=== PATIENT | male | born 1945 | race Caucasian/White ===

== ENCOUNTER → 2018-07-20 | Outpatient (CLI) | payer MEDICARE, MEDICAID ==
--- NOTE | 2018-07-20 16:09 | RADIOLOGY REPORT (SQ) ---
EXAM DESCRIPTION: CHEST PA/LATERAL COMPLETED DATE/TIME: 07/20/2018 3:54 pm REASON FOR STUDY: COPD EXACERBATION COMPARISON: None. EXAM PARAMETERS: NUMBER OF VIEWS: two views TECHNIQUE: Digital Frontal and Lateral radiographic views of the chest acquired. RADIATION DOSE: NA LIMITATIONS: none FINDINGS: LUNGS AND PLEURA: No opacities, masses or pneumothorax. No pleural effusion. MEDIASTINUM AND HILAR STRUCTURES: No masses or contour abnormalities. HEART AND VASCULAR STRUCTURES: Heart normal size. No evidence for failure. BONES: No acute findings. HARDWARE: None in the chest. OTHER: No other significant finding. IMPRESSION: NO SIGNIFICANT RADIOGRAPHIC FINDING IN THE CHEST. TECHNICAL DOCUMENTATION: JOB ID: [id number] [email or web address]- All Rights Reserved Reading location - IP/workstation name: [email or web address]
== END ==
LOC: OD 15:37
PROVIDERS: ATTEND Family Medicine
DX: J44.1 Chronic obstructive pulmonary disease with (acute) exacerbation (principal)
CPT/HCPCS: 71046

== ENCOUNTER 2019-11-13 10:00 | Inpatient (IN) | payer MEDICARE, MEDICAID ==
[2019-11-13] MEDS ORDERED: IPRATROPIUM/ALBUTEROL 0.5-2.5 MG/3 ML AMPUL NEB ONE (10:23)
[2019-11-13] MEDS ORDERED: ALBUTEROL SULFATE 0.083% NEB 2.5 MG/3 ML AMPUL NEB ONE (10:23)
[2019-11-13] MEDS ORDERED: PREDNISONE 20 MG TABLET PO ONE (10:24)
--- NOTE | 2019-11-13 10:25 | ER Document Report ---
ED Medical Screen (RME) - General Chief Complaint: Shortness Of Breath Stated Complaint: TROUBLE BREATHING Time Seen by Provider: 11/13/19 10:17 Primary Care Provider: KAMALA CORRAL DO [Primary Care Provider] - Follow up as needed TRAVEL OUTSIDE OF THE [place] IN LAST 30 DAYS: No - HPI Notes: 11/13/19 10:24 74-year-old male with history of COPD to the emergency department with c omplaints of progressively worsening shortness of breath for the past 2 weeks. He states he has been trying to use his albuterol inhaler but it really has not been controlling him. He states he gets a little bit worse at night. He states that he has a nebulizer machine but he cannot find it. He states that he stopped smoking in 2004. Denies fevers or chills. Denies chest pain. States that he will wake up in the middle the night and feel like he cannot breathe. I performed a brief medical screening exam on the patient and determined that he will need further evaluation and management by me inside provider. I placed initial orders to help expedite his care. - Related Data Allergies/Adverse Reactions: Penicillins Allergy (Verified 11/13/19 10:13) Home Medications: PAtient does not have list with him at this time. Past Medical History - Social History Chew tobacco use (# tins/day): No Frequency of alcohol use: None Drug Abuse: None Pulmonary Medical History: Reports: Hx COPD Past Surgical History: Reports: Hx Abdominal Surgery - inguinal hernia Physical Exam - Vital signs Vitals: Temp Pulse Resp BP Pulse Ox 97.9 F 95 20 129/72 H 94 11/13/19 10:11/13/19 10:11/13/19 10:11/13/19 10:11/13/19 10:05 Course - Vital Signs Vital signs: Temp Pulse Resp BP Pulse Ox 97.9 F 95 20 129/72 H 94 11/13/19 10:11/13/19 10:11/13/19 10:11/13/19 10:05 11/13/19 10:05 Doctor's Discharge - Discharge Referrals: KAMALA CORRAL DO [Primary Care Provider] - Follow up as needed
[2019-11-13 11:11] LABS: ABSOLUTE BASOPHILS # (AUTO) 0.1 10^3/uL (0.0-0.2); ABSOLUTE EOSINOPHILS # (AUTO) 0.7 10^3/uL (0.0-0.6); ABSOLUTE LYMPHOCYTES (AUTO) 1.3 10^3/uL (0.5-4.7); ABSOLUTE MONOCYTES (AUTO) 0.7 10^3/uL (0.1-1.4); ABSOLUTE NEUT (AUTO) 3.5 10^3/uL (1.7-8.2); BASOPHILS % (AUTO) 0.8 % (0-2); EOSINOPHILS % (AUTO) 11.7 % (0-6); HEMATOCRIT 45.8 % (37.9-51.0); HEMOGLOBIN 15.3 g/dL (13.5-17.0); MEAN CORPUSCULAR HEMOGLOBIN 29.7 pg (27.0-33.4); MEAN CORPUSCULAR HGB CONC 33.3 g/dL (32.0-36.0); MEAN CORPUSCULAR VOLUME 89 fl (80-97); MONOCYTES % (AUTO) 11.2 % (3-13); PLATELET COUNT 273 10^3/uL (150-450); RED BLOOD COUNT 5.14 10^6/uL (4.35-5.55); RED CELL DISTRIBUTION WIDTH 14.4 % (11.5-14.0); SEGMENTED NEUTROPHILS % (AUTO) 56.3 % (42-78); TOTAL CELLS COUNTED % (AUTO) 100 %; WHITE BLOOD COUNT 6.3 10^3/uL (4.0-10.5)
--- NOTE | 2019-11-13 11:21 | RADIOLOGY REPORT (SQ) ---
EXAM DESCRIPTION: CHEST 2 VIEWS COMPLETED DATE/TIME: 11/13/2019 11:08 am REASON FOR STUDY: SOB COMPARISON: 07/20/2018 EXAM PARAMETERS: NUMBER OF VIEWS: two views TECHNIQUE: Digital Frontal and Lateral radiographic views of the chest acquired. RADIATION DOSE: NA LIMITATIONS: none FINDINGS: LUNGS AND PLEURA: Minimal opacity at the left base. Right lung is clear. Hyperinflation. MEDIASTINUM AND HILAR STRUCTURES: No masses or contour abnormalities. HEART AND VASCULAR STRUCTURES: Heart normal size. No evidence for failure. BONES: No acute findings. HARDWARE: None in the chest. OTHER: No other significant finding. IMPRESSION: Left basilar pneumonitis. TECHNICAL DOCUMENTATION: JOB ID: [id number] [employer]- All Rights Reserved Reading location - IP/workstation name: [email or web address]
[2019-11-13 11:28] LABS: ALBUMIN 4.2 g/dL (3.5-5.0); ALKALINE PHOSPHATASE 61 U/L (38-126); ANION GAP 9 (5-19); ASPARTATE AMINO TRANSFERASE 27 U/L (17-59); BILIRUBIN,TOTAL 0.5 mg/dL (0.2-1.3); BLOOD UREA NITROGEN 10 mg/dL (7-20); CALCIUM 9.1 mg/dL (8.4-10.2); CARBON DIOXIDE 28 mmol/L (22-30); CHLORIDE 102 mmol/L (98-107); GLUCOSE 91 mg/dL (75-110); POTASSIUM 4.4 mmol/L (3.6-5.0); TOTAL PROTEIN 7.2 g/dL (6.3-8.2)
[2019-11-13] MEDS ORDERED: DEXAMETHASONE SOD PHOS INJ 10 MG/1 ML VIAL IV ONE (13:32)
[2019-11-13] MEDS ORDERED: LEVOFLOXACIN 750 MG/D5W RTU 750 MG/150 ML RTUPB IV ONE (13:33)
[2019-11-13] MEDS ORDERED: HYDROCODONE BIT/HOMATROPINE SYRUP 5 ML UDCUP PO ONE (13:34)
[2019-11-13] MEDS ORDERED: HYDROCODONE BIT/HOMATROPINE 5-1.5 MG TABLET PO ONE (13:51)
--- NOTE | 2019-11-13 13:57 | ER Document Report ---
ED General - General Chief Complaint: Shortness Of Breath Stated Complaint: TROUBLE BREATHING Time Seen by Provider: 11/13/19 10:17 Primary Care Provider: KAMALA CORRAL DO [Primary Care Provider] - Follow up as needed Information source: Patient Notes: 74-year-old male who reports he used to be a smoker but stopped in 2004 because of 3 pack-a-day smoking for more than 40 years. Patient arrives with 2-week history of increased shortness of breath nightly congestion and nightly awakening him with cough and has a history of COPD. Patient arrives with history of also green productive phlegm. He reports he has a rattle in his chest as well. He denies any fever chills skin rash sore throat nasal congestion nuchal rigidity cephalgia exposure to sick people or to foreign willa viduals and has not been exposed to anyone from [place] and no one with SARS MRS coronavirus. Reports he had rheumatic fever as a child and got many shots of penicillin and therefore he does not like needles. TRAVEL OUTSIDE OF THE [place] IN LAST 30 DAYS: No - HPI Onset: This morning - Related Data Allergies/Adverse Reactions: Penicillins Allergy (Verified 11/13/19 10:13) Home Medications: PAtient does not have list with him at this time. Past Medical History - General Information source: Patient - Social History Smoking Status: Former Smoker Cigarette use (# per day): No Chew tobacco use (# tins/day): No Smoking Education Provided: No Frequency of alcohol use: None Drug Abuse: None Lives with: Family Family History: Reviewed & Not Pertinent Patient has suicidal ideation: No Patient has homicidal ideation: No - Past Medical History Cardiac Medical History: Reports: None Pulmonary Medical History: Reports: Hx COPD EENT Medical History: Reports: None Neurological Medical History: Reports: None Renal/ Medical History: Reports: None Malignancy Medical History: Reports None GI Medical History: Reports: None Musculoskeletal Medical History: Reports None Skin Medical History: Reports None Psychiatric Medical History: Reports: None Traumatic Medical History: Reports: None Infectious Medical History: Reports: None Past Surgical History: Reports: Hx Abdominal Surgery - inguinal hernia - Immunizations Immunizations up to date: No Review of Systems - Review of Systems Constitutional: See HPI, Malaise, Weakness EENT: Nose congestion Cardiovascular: No symptoms reported Respiratory: Cough, Hurts to breathe, Short of breath, Sputum, Wheezing Gastrointestinal: No symptoms reported Genitourinary: No symptoms reported Male Genitourinary: No symptoms reported Musculoskeletal: No symptoms reported Skin: No symptoms reported Hematologic/Lymphatic: No symptoms reported Neurological/Psychological: No symptoms reported Physical Exam - Vital signs Vitals: Temp Pulse Resp BP Pulse Ox 97.9 F 95 20 129/72 H 94 11/13/19 10:05 11/13/19 10:05 11/13/19 10:05 11/13/19 10:05 11/13/19 10:05 Interpretation: Hypoxic, Tachypneic - General General appearance: Alert In distress: Mild - HEENT Head: Normocephalic Eyes: Normal Conjunctiva: Normal Cornea: Normal Extraocular movements intact: Yes Eyelashes: Normal Pupils: PERRL Nasal: Normal Mouth/Lips: Normal Pharynx: Normal Neck: Normal - Respiratory Respiratory status: Respiratory distress, Tachypnea Chest status: Nontender Breath sounds: Productive cough, Wheezing Chest palpation: Normal Course - Vital Signs Vital signs: Temp Pulse Resp BP Pulse Ox 97.9 F 95 20 104/65 95 11/13/19 10:05 11/13/19 10:05 11/13/19 13:01 11/13/19 13:01 11/13/19 13:01 - Laboratory Result Diagrams: 11/13/19 10:40 11/13/19 10:40 Laboratory results interpreted by me: 11/13/19 10:40 RDW 14.4 H Eos % (Auto) 11.7 H Absolute Eos (auto) 0.7 H Critical Care Note - Critical Care Note Total time excluding time spent on procedures (mins): 90 Comments: Discussed this case with ; advised speaking with Dr. Pinedo who advised he will admit patient Discharge - Discharge Clinical Impression: COPD (chronic obstructive pulmonary disease) with acute bronchitis, Hypoxia Pneumonia Qualifiers: Pneumonia type: due to unspecified organism Laterality: left Lung location: lower lobe of lung Qualified Code(s): J18.9 - Pneumonia, unspecified organism Condition: Good Disposition: ADMITTED INPATIENT Admitting Provider: Shahida (Hospitalist) Unit Admitted: Telemetry Referrals: KAMALA CORRAL DO [Primary Care Provider] - Follow up as needed
[2019-11-13] MEDS ORDERED: PROMETHAZINE HCL INJ 25 MG/1 ML VIAL IV PRN (15:19)
[2019-11-13] MEDS ORDERED: TEMAZEPAM 7.5 MG CAPSULE PO PRN (15:19)
[2019-11-13] MEDS ORDERED: OXYCODONE-ACETAMINOPHEN 5-325 MG TABLET PO PRN (15:19)
[2019-11-13] MEDS ORDERED: ALBUTEROL SULFATE 0.083% NEB 2.5 MG/3 ML AMPUL NEB PRN (15:19)
[2019-11-13] MEDS ORDERED: ONDANSETRON HCL INJ/PF 4 MG/2 ML SDV IV PRN (15:19)
[2019-11-13 16:00] LABS: ARTERIAL BLOOD BASE EXCESS -0.5 mmol/L; ARTERIAL BLOOD H2CO3 1.17 mmol/L (1.05-1.35); ARTERIAL BLOOD HCO3 23.9 mmol/L (20-24); ARTERIAL BLOOD O2 SATURATION 95.7 % (94-98); ARTERIAL BLOOD PH 7.41 (7.35-7.45); ARTERIAL BLOOD PO2 78.1 mmHg (80-100); ARTERIAL BLOOD TOTAL CO2 25.1 mmol/L (23-27)
[2019-11-13 16:01] LABS: ARTERIAL BLOOD FIO2 2L
[2019-11-13] MEDS: IPRATROPIUM/ALBUTEROL 0.5-2.5 MG/3 ML AMPUL NEB SCH ×2 (16:31→20:25)
[2019-11-13] MEDS: PANTOPRAZOLE SODIUM 40 MG TABLET.DR PO SCH (16:31)
[2019-11-13] MEDS: ENOXAPARIN SODIUM INJ 40 MG/0.4 ML DISP.SYRIN SUBCUT SCH (16:31)
--- NOTE | 2019-11-13 16:53 | PDOC H&P ---
History of Present Illness Admission Date/PCP: 11/13/19 14:28 KAAMLA CORRAL DO History of Present Illness: RICCI QUINTANILLA is a 74 year old male with past medical history of COPD, hypertension, history of rheumatic heart disease as a child, former heavy smoker, history of EtOH who was at rehab for 2 months in [place], came back in August was currently living at [facility] were several of his co-residents have been having upper respiratory symptoms. Patient presenting to ED complaining of worsening shortness of breath accompanied with greenish productive cough and congestion. Denies any fever, chills, weight loss, night sweats, nausea, vomiting, abdominal pain, diarrhea, constipation or any urinary symptoms, recent travel, has been exposed to other people at the [facility] with similar symptoms. Past Medical History Cardiac Medical History: Reports: None Pulmonary Medical History: Reports: Chronic Obstructive Pulmonary Disease (COPD) EENT Medical History: Reports: None Neurological Medical History: Reports: None Renal/ Medical History: Reports: None Malignancy Medical History: Reports: None GI Medical History: Reports: None Musculoskeltal Medical History: Reports: None Skin Medical History: Reports: None Psychiatric Medical History: Reports: None Traumatic Medical History: Reports: None Infectious Medical History: Reports: None Social History Lives with: Family Smoking Status: Former Smoker Electronic Cigarette use?: No Family History Family History: Reviewed & Not Pertinent Parental Family History Reviewed: Yes Children Family History Reviewed: Yes Sibling(s) Family History Reviewed.: Yes Medication/Allergy Home Medications: Methocarbamol [Robaxin 750 mg Tablet] 750 mg PO ASDIR PRN #40 tablet 07/13/15 Allergies/Adverse Reactions: Penicillins Allergy (Verified 11/13/19 10:13) Review of Systems Review of Systems: as per hpi Physical Exam Vital Signs: Temp Pulse Resp BP Pulse Ox 97.9 F 95 16 104/65 94 11/13/19 10:05 11/13/19 10:05 11/13/19 16:39 11/13/19 13:01 11/13/19 16:39 Intake & Output 11/12/19 11/13/19 11/14/19 06:59 06:59 06:59 Weight 96.4 kg General appearance: PRESENT: no acute distress, well-developed, well-nourished Head exam: PRESENT: atraumatic, normocephalic Respiratory exam: PRESENT: clear to auscultation blu, tachypnea. ABSENT: rales, rhonchi, wheezes Cardiovascular exam: PRESENT: RRR. ABSENT: diastolic murmur, rubs, systolic murmur GI/Abdominal exam: PRESENT: normal bowel sounds, soft. ABSENT: distended, guarding, mass, organolmegaly, rebound, tenderness Neurological exam: PRESENT: alert, awake, oriented to person, oriented to place, oriented to time, oriented to situation, CN II-XII grossly intact. ABSENT: motor sensory deficit Skin exam: PRESENT: dry, intact, warm. ABSENT: cyanosis, rash Results Laboratory Results: 11/13/19 10:40 11/13/19 10:40 11/13/19 11/13/19 11/13/19 10:40 10:40 15:52 WBC 6.3 RBC 5.14 Hgb 15.3 Hct 45.8 MCV 89 MCH 29.7 MCHC 33.3 RDW 14.4 H Plt Count 273 Seg Neutrophils % 56.3 Carbonic Acid 1.17 HCO3/H2CO3 Ratio 20:1 ABG pH 7.41 ABG pCO2 39.0 ABG pO2 78.1 L ABG HCO3 23.9 ABG O2 Saturation 95.7 ABG Base Excess -0.5 FiO2 2L Sodium 139.3 Potassium 4.4 Chloride 102 Carbon Dioxide 28 Anion Gap 9 BUN 10 Creatinine 0.80 Est GFR ( Amer) > 60 Glucose 91 Calcium 9.1 Total Bilirubin 0.5 AST 27 Alkaline Phosphatase 61 Total Protein 7.2 Albumin 4.2 Impressions: Chest X-Ray 11/13/19 10:23 IMPRESSION: Left basilar pneumonitis. Assessment and Plan - Diagnosis (1) Acute respiratory failure with hypoxia Is this a current diagnosis for this admission?: Yes Plan: Due to acute upper respiratory infection complicated by acute COPD exacerbation. Admit to medical floor, IV steroids, empiric IV antibiotics, duo nebs, PRN BiPAP, LABA, LABA, ICS, flutter valve, pulmonary toileting, incentive spirometer. (2) Acute exacerbation of chronic obstructive pulmonary disease (COPD) Is this a current diagnosis for this admission?: Yes Plan: History of non-oxygen dependent COPD. Uses rescue inhaler at home. Plan as per #1. Will evaluate for home O2 (3) Acute bronchitis Qualifiers: Bronchitis organism: unspecified organism Qualified Code(s): J20.9 - Acute bronchitis, unspecified Is this a current diagnosis for this admission?: Yes Plan: Complaining of productive cough with greenish sputum. Afebrile, no leukocytosis not sure if viral or bacterial but given underlying comorbidities will treat with empiric IV antibiotics with a sputum and blood culture. (4) Former smoker Is this a current diagnosis for this admission?: Yes Plan: History of heavy alcohol abuse. Quit in 2004. Encouraged abstinence. (5) History of alcohol abuse Is this a current diagnosis for this admission?: Yes Plan: Former EtOH abuser. As per patient he was in rehab in [place] for 2 months from June to August 2019. Encouraged abstinence.
[2019-11-13] MEDS: DOCUSATE SODIUM 100 MG CAPSULE PO SCH (18:57)
[2019-11-13] MEDS: METHYLPREDNISOLONE INJ 40 MG/1 ML SDV IV SCH (22:26)
[2019-11-13] MEDS: FAMOTIDINE 20 MG TABLET PO SCH (22:27)
--- NOTE | 2019-11-13 23:37 | EKG REPORT ---
SEVERITY:- ABNORMAL ECG - SINUS RHYTHM NONSPECIFIC INTRAVENTRICULAR CONDUCTION DELAY : Confirmed by: Samaria Holbrook 13-Nov-2019 23:36:47
[2019-11-14] MEDS: PANTOPRAZOLE SODIUM 40 MG TABLET.DR PO SCH ×2 (05:42→17:19)
[2019-11-14] MEDS: METHYLPREDNISOLONE INJ 40 MG/1 ML SDV IV SCH ×3 (05:42→21:30)
[2019-11-14 06:15] LABS: ABSOLUTE LYMPHOCYTES (AUTO) 0.6 10^3/uL (0.5-4.7); ABSOLUTE MONOCYTES (AUTO) 0.1 10^3/uL (0.1-1.4); ABSOLUTE NEUT (AUTO) 4.8 10^3/uL (1.7-8.2); BASOPHILS % (AUTO) 0.2 % (0-2); HEMATOCRIT 41.4 % (37.9-51.0); HEMOGLOBIN 14.1 g/dL (13.5-17.0); LYMPHOCYTES % (AUTO) 11.4 % (13-45); MEAN CORPUSCULAR HGB CONC 34.1 g/dL (32.0-36.0); MEAN CORPUSCULAR VOLUME 88 fl (80-97); MONOCYTES % (AUTO) 2.7 % (3-13); PLATELET COUNT 251 10^3/uL (150-450); RED BLOOD COUNT 4.71 10^6/uL (4.35-5.55); RED CELL DISTRIBUTION WIDTH 14.3 % (11.5-14.0); SEGMENTED NEUTROPHILS % (AUTO) 85.7 % (42-78); TOTAL CELLS COUNTED % (AUTO) 100 %; WHITE BLOOD COUNT 5.6 10^3/uL (4.0-10.5)
[2019-11-14 06:31] LABS: ANION GAP 9 (5-19); BLOOD UREA NITROGEN 10 mg/dL (7-20); CALCIUM 9.5 mg/dL (8.4-10.2); CARBON DIOXIDE 26 mmol/L (22-30); CHLORIDE 103 mmol/L (98-107); CHOLESTEROL 186.07 mg/dL (0-200); GLUCOSE 174 mg/dL (75-110); POTASSIUM 4.7 mmol/L (3.6-5.0); TRIGLYCERIDES 79 mg/dL (<150)
[2019-11-14 06:42] LABS: DIRECT LDL 128 mg/dL (<100)
[2019-11-14] MEDS: IPRATROPIUM/ALBUTEROL 0.5-2.5 MG/3 ML AMPUL NEB SCH ×4 (08:29→20:04)
[2019-11-14] MEDS: DOCUSATE SODIUM 100 MG CAPSULE PO SCH ×2 (09:48→17:18)
[2019-11-14] MEDS: LEVOFLOXACIN 500 MG TABLET PO SCH (09:49)
[2019-11-14] MEDS: FLUTICASONE/UMECLIDIN/VILANTER 100-62.5-25 MCG/DOSE IH SCH (09:49)
[2019-11-14] MEDS: FAMOTIDINE 20 MG TABLET PO SCH ×2 (09:49→21:30)
[2019-11-14] MEDS: ENOXAPARIN SODIUM INJ 40 MG/0.4 ML DISP.SYRIN SUBCUT SCH (09:49)
[2019-11-14] MEDS ORDERED: FLUTICASONE/VILANTEROL 100-25 MCG/DOSE IH SCH (10:00)
--- NOTE | 2019-11-14 10:26 | PDOC PROGRESS REPORT ---
Subjective Progress Note for:: 11/14/19 Subjective:: RICCI QUINTANILLA is a 74 year old male with past medical history of COPD, hypertension, history of rheumatic heart disease as a child, former heavy smoker, history of EtOH who was at rehab for 2 months in [place], came back in August was currently living at [facility] were several of his co-residents have been having upper respiratory symptoms. Patient presenting to ED complaining of worsening shortness of breath accompanied with greenish productive cough and congestion. Denies any fever, chills, weight loss, night sweats, nausea, vomiting, abdominal pain, diarrhea, constipation or any urinary symptoms, recent travel, has been exposed to other people at the [facility] with similar symptoms. 11/14/2019. No acute events overnight. Significant improvement of shortness of breath, still wheezing on physical examination, denies any fever, chills, nausea, vomiting, diarrhea, constipation or any other symptoms. Still having productive cough. Reason For Visit: ACUTE COPD EXACERBATION Physical Exam Vital Signs: Temp Pulse Resp BP Pulse Ox 98.0 F 96 18 155/63 H 85 L 11/14/19 00:48 11/14/19 08:32 11/14/19 08:32 11/14/19 00:48 11/14/19 08:32 Intake & Output 11/13/19 11/14/19 11/15/19 06:59 06:59 06:59 Intake Total 150 Balance 150 Weight 96.4 kg General appearance: PRESENT: obese Head exam: PRESENT: atraumatic, normocephalic Respiratory exam: PRESENT: prolonged expiratory phas, wheezes. ABSENT: rales, rhonchi Cardiovascular exam: PRESENT: RRR. ABSENT: diastolic murmur, rubs, systolic murmur GI/Abdominal exam: PRESENT: normal bowel sounds, soft. ABSENT: distended, guarding, mass, organolmegaly, rebound, tenderness Neurological exam: PRESENT: alert, awake, oriented to person, oriented to place, oriented to time, oriented to situation, CN II-XII grossly intact. ABSENT: motor sensory deficit Results Laboratory Results: 11/14/19 05:30 11/14/19 05:30 11/13/19 11/13/19 11/13/19 10:40 10:40 15:52 WBC 6.3 RBC 5.14 Hgb 15.3 Hct 45.8 MCV 89 MCH 29.7 MCHC 33.3 RDW 14.4 H Plt Count 273 Seg Neutrophils % 56.3 Carbonic Acid 1.17 HCO3/H2CO3 Ratio 20:1 ABG pH 7.41 ABG pCO2 39.0 ABG pO2 78.1 L ABG HCO3 23.9 ABG O2 Saturation 95.7 ABG Base Excess -0.5 FiO2 2L Sodium 139.3 Potassium 4.4 Chloride 102 Carbon Dioxide 28 Anion Gap 9 BUN 10 Creatinine 0.80 Est GFR ( Amer) > 60 Glucose 91 Calcium 9.1 Magnesium Total Bilirubin 0.5 AST 27 Alkaline Phosphatase 61 Total Protein 7.2 Albumin 4.2 Triglycerides Cholesterol LDL Cholesterol Direct VLDL Cholesterol HDL Cholesterol TSH 11/14/19 11/14/19 11/14/19 05:30 05:30 05:30 WBC 5.6 RBC 4.71 Hgb 14.1 Hct 41.4 MCV 88 MCH 30.0 MCHC 34.1 RDW 14.3 H Plt Count 251 Seg Neutrophils % 85.7 H Carbonic Acid HCO3/H2CO3 Ratio ABG pH ABG pCO2 ABG pO2 ABG HCO3 ABG O2 Saturation ABG Base Excess FiO2 Sodium 137.5 Potassium 4.7 Chloride 103 Carbon Dioxide 26 Anion Gap 9 BUN 10 Creatinine 0.69 Est GFR ( Amer) > 60 Glucose 174 H Calcium 9.5 Magnesium 2.1 Total Bilirubin AST Alkaline Phosphatase Total Protein Albumin Triglycerides 79 Cholesterol 186.07 LDL Cholesterol Direct 128 H VLDL Cholesterol 16.0 HDL Cholesterol 50 TSH 0.12 L Impressions: Chest X-Ray 11/13/19 10:23 IMPRESSION: Left basilar pneumonitis. Assessment and Plan - Diagnosis (1) Acute respiratory failure with hypoxia Is this a current diagnosis for this admission?: Yes Plan: Improving. Due to acute upper respiratory infection complicated by acute COPD exacerbation. Continue IV steroids, empiric IV antibiotics, duo nebs, PRN BiPAP, LABA, LABA, ICS, flutter valve, pulmonary toileting, incentive spirometer. (2) Acute exacerbation of chronic obstructive pulmonary disease (COPD) Is this a current diagnosis for this admission?: Yes Plan: History of non-oxygen dependent COPD. Uses rescue inhaler at home. Plan as per #1. Will evaluate for home O2 (3) Acute bronchitis Qualifiers: Bronchitis organism: unspecified organism Qualified Code(s): J20.9 - Acute bronchitis, unspecified Is this a current diagnosis for this admission?: Yes Plan: Complaining of productive cough with greenish sputum. Afebrile, no leukocytosis not sure if viral or bacterial but given underlying comorbidities will treat with empiric IV antibiotics with a sputum and blood culture. (4) Former smoker Is this a current diagnosis for this admission?: Yes Plan: History of heavy alcohol abuse. Quit in 2004. Encouraged abstinence. (5) History of alcohol abuse Is this a current diagnosis for this admission?: Yes Plan: Former EtOH abuser. As per patient he was in rehab in [place] for 2 months from June to August 2019. Encouraged abstinence.
[2019-11-14 13:42] LABS: FREE T3 2.62 pg/mL (2.77-5.27); FREE T4 (FREE THYROXINE) 0.69 ng/dL (0.78-2.19)
[2019-11-14] MEDS ORDERED: GUAIFENESIN 600 MG TABLET.SA PO PRN (22:46)
[2019-11-15] MEDS ORDERED: GUAIFENESIN SYRP 200 MG/10 ML UDC PO PRN (02:11)
[2019-11-15] MEDS: METHYLPREDNISOLONE INJ 40 MG/1 ML SDV IV SCH ×3 (05:18→22:17)
[2019-11-15] MEDS: PANTOPRAZOLE SODIUM 40 MG TABLET.DR PO SCH ×2 (05:18→17:46)
[2019-11-15] MEDS: IPRATROPIUM/ALBUTEROL 0.5-2.5 MG/3 ML AMPUL NEB SCH ×4 (08:42→20:22)
[2019-11-15] MEDS: DOCUSATE SODIUM 100 MG CAPSULE PO SCH ×2 (09:02→17:46)
[2019-11-15] MEDS: ENOXAPARIN SODIUM INJ 40 MG/0.4 ML DISP.SYRIN SUBCUT SCH (09:03)
[2019-11-15] MEDS: FAMOTIDINE 20 MG TABLET PO SCH ×2 (09:03→22:17)
[2019-11-15] MEDS: LEVOFLOXACIN 500 MG TABLET PO SCH (09:03)
--- NOTE | 2019-11-15 12:54 | PDOC PROGRESS REPORT ---
Subjective Progress Note for:: 11/15/19 Subjective:: RICCI QUINTANILLA is a 74 year old male with past medical history of COPD, hypertension, history of rheumatic heart disease as a child, former heavy smoker, history of EtOH who was at rehab for 2 months in [place], came back in August was currently living at [facility] were several of his co-residents have been having upper respiratory symptoms. Patient presenting to ED complaining of worsening shortness of breath accompanied with greenish productive cough and congestion. Denies any fever, chills, weight loss, night sweats, nausea, vomiting, abdominal pain, diarrhea, constipation or any urinary symptoms, recent travel, has been exposed to other people at the [facility] with similar symptoms. 11/14/2019. No acute events overnight. Significant improvement of shortness of breath, still wheezing on physical examination, denies any fever, chills, nausea, vomiting, diarrhea, constipation or any other symptoms. Still having productive cough. 09/14/2020. No acute events overnight. Patient still having persistent productive cough otherwise no complaints, denies any fever, chills, chest pain, shortness of breath, nausea, vomiting, diarrhea, constipation or any urinary symptoms. P.o. tolerant. Ambulatory. Having normal bowel and bladder movements. Mild improvement of pulmonary wheezing but still dependent on supplemental O2. Possible discharge tomorrow. Reason For Visit: ACUTE COPD EXACERBATION Physical Exam Vital Signs: Temp Pulse Resp BP Pulse Ox 98 F 74 16 140/54 H 96 11/15/19 11:38 11/15/19 11:38 11/15/19 11:38 11/15/19 11:38 11/15/19 11:38 Intake & Output 11/14/19 11/15/19 11/16/19 06:59 06:59 06:59 Intake Total 150 1362 740 Balance 150 1362 740 Weight 96.4 kg 96.4 kg General appearance: PRESENT: obese Head exam: PRESENT: atraumatic, normocephalic Respiratory exam: PRESENT: clear to auscultation blu. ABSENT: rales, rhonchi, wheezes Pulses: PRESENT: normal dorsalis pedis pul GI/Abdominal exam: PRESENT: normal bowel sounds, soft. ABSENT: distended, guarding, mass, organolmegaly, rebound, tenderness Neurological exam: PRESENT: alert, awake, oriented to person, oriented to place, oriented to time, oriented to situation, CN II-XII grossly intact. ABSENT: motor sensory deficit Results Laboratory Results: 11/14/19 05:30 11/14/19 05:30 11/14/19 05:30 Free T4 0.69 L Free T3 pg/mL 2.62 L Impressions: Chest X-Ray 11/13/19 10:23 IMPRESSION: Left basilar pneumonitis. Assessment and Plan - Diagnosis (1) Acute respiratory failure with hypoxia Is this a current diagnosis for this admission?: Yes Plan: Complaining of persistent productive cough. SPO2 WNL on 3 L. Mild expiratory wheezing present. Due to acute upper respiratory infection complicated by acute COPD exacerbation. Continue IV steroids, empiric IV antibiotics, duo nebs, PRN BiPAP, LABA, LABA, ICS, flutter valve, pulmonary toileting, incentive spirometer. (2) Acute exacerbation of chronic obstructive pulmonary disease (COPD) Is this a current diagnosis for this admission?: Yes Plan: History of non-oxygen dependent COPD. Uses rescue inhaler at home. Plan as per #1. Will evaluate for home O2 (3) Acute bronchitis Qualifiers: Bronchitis organism: unspecified organism Qualified Code(s): J20.9 - Acute bronchitis, unspecified Is this a current diagnosis for this admission?: Yes Plan: Complaining of productive cough with greenish sputum. Afebrile, no leukocytosis not sure if viral or bacterial but given underlying comorbidities will treat with empiric IV antibiotics with a sputum and blood culture. (4) Former smoker Is this a current diagnosis for this admission?: Yes Plan: History of heavy alcohol abuse. Quit in 2004. Encouraged abstinence. (5) History of alcohol abuse Is this a current diagnosis for this admission?: Yes Plan: Former EtOH abuser. As per patient he was in rehab in [place] for 2 months from June to August 2019. Encouraged abstinence.
[2019-11-15] MEDS: FLUTICASONE/UMECLIDIN/VILANTER 100-62.5-25 MCG/DOSE IH SCH (13:59)
[2019-11-15] MEDS: GUAIFENESIN/CODEINE PHOS 100-10 MG/ 5 ML UDC PO SCH ×3 (13:59→22:17)
[2019-11-15] MEDS: SODIUM CHLORIDE NASAL SPRAY 44 ML NAREB PRN (16:45)
[2019-11-16] MEDS: METHYLPREDNISOLONE INJ 40 MG/1 ML SDV IV SCH ×3 (05:07→21:27)
[2019-11-16] MEDS: PANTOPRAZOLE SODIUM 40 MG TABLET.DR PO SCH ×2 (05:07→17:45)
[2019-11-16] MEDS: IPRATROPIUM/ALBUTEROL 0.5-2.5 MG/3 ML AMPUL NEB SCH ×4 (08:22→19:28)
[2019-11-16] MEDS: ENOXAPARIN SODIUM INJ 40 MG/0.4 ML DISP.SYRIN SUBCUT SCH (09:15)
[2019-11-16] MEDS: FAMOTIDINE 20 MG TABLET PO SCH ×2 (09:20→21:27)
[2019-11-16] MEDS: LEVOFLOXACIN 500 MG TABLET PO SCH (09:20)
[2019-11-16] MEDS: DOCUSATE SODIUM 100 MG CAPSULE PO SCH ×2 (09:20→17:45)
[2019-11-16] MEDS: GUAIFENESIN/CODEINE PHOS 100-10 MG/ 5 ML UDC PO SCH ×4 (09:20→21:27)
[2019-11-16] MEDS: SODIUM CHLORIDE NASAL SPRAY 44 ML NAREB PRN ×2 (09:20→17:45)
[2019-11-16] MEDS: FLUTICASONE/UMECLIDIN/VILANTER 100-62.5-25 MCG/DOSE IH SCH (09:20)
--- NOTE | 2019-11-16 16:01 | PDOC DISCHARGE SUMMARY ---
Impression - Admit/DC Date/PCP Admission Date/Primary Care Provider: 11/15/19 08:43 KAMALA CORRAL DO Discharge Date: 11/16/19 - Discharge Diagnosis (1) Chronic hypoxemic respiratory failure Is this a current diagnosis for this admission?: Yes (2) Acute exacerbation of chronic obstructive pulmonary disease (COPD) Is this a current diagnosis for this admission?: Yes - Additional Information Resuscitation Status: Full Code Discharge Diet: Cardiac Discharge Activity: Activity As Tolerated Referrals: KAMALA CORRAL DO [Primary Care Provider] - Follow up as needed Prescriptions: Prednisone [Deltasone 20 mg Tablet] 40 mg PO DAILY #10 tablet Levofloxacin [Levaquin 500 mg Tablet] 500 mg PO DAILY #3 tablet Albuterol Sulfate [Ventolin Hfa 8 gm Mdi (1 Mdi/ER Disp)] 2 puff IH Q4HP PRN #1 inhaler PRN Reason: Home Medications: Albuterol Sulfate [Ventolin Hfa 8 gm Mdi (1 Mdi/ER Disp)] 2 puff IH Q4HP PRN #1 inhaler 11/16/19 Levofloxacin [Levaquin 500 mg Tablet] 500 mg PO DAILY #3 tablet 11/16/19 Prednisone [Deltasone 20 mg Tablet] 40 mg PO DAILY #10 tablet 11/16/19 History of Present Illiness History of Present Illness: RICCI QUINTANILLA is a 74 year old male with past medical history of COPD, hypertension, history of rheumatic heart disease as a child, former heavy smoker, history of EtOH who was at rehab for 2 months in [place], came back in August was currently living at [facility] were several of his co-residents have been having upper respiratory symptoms. Patient presenting to ED complaining of worsening shortness of breath accompanied with greenish productive cough and congestion. Denies any fever, chills, weight loss, night sweats, nausea, vomiting, abdominal pain, diarrhea, constipation or any urinary symptoms, recent travel, has been exposed to other people at the [facility] with similar symptoms. Hospital Course Hospital Course: He responded quickly to steroids and bronchodilators. He will finish up a course of Levaquin and prednisone as an outpatient. We did a 6-minute walk test on him and his oxygen saturations were below 90% at rest and continue to drop even further while walking. We have set him up to get home oxygen. [facility] and will have to arrange his own follow-up visit with them. His labs and examination were reassuring and he was discharged in stable condition. Physical Exam Vital Signs: Temp Pulse Resp BP Pulse Ox 97.4 F 82 18 156/68 H 92 11/16/19 14:58 11/16/19 15:37 11/16/19 15:37 11/16/19 14:58 11/16/19 15:37 Intake & Output 11/15/19 11/16/19 11/17/19 06:59 06:59 06:59 Intake Total 1362 1907 476 Balance 1362 1907 476 Weight 96.4 kg 88 kg General appearance: PRESENT: obese Head exam: PRESENT: atraumatic, normocephalic Respiratory exam: PRESENT: clear to auscultation blu. ABSENT: rales, rhonchi, wheezes Pulses: PRESENT: normal dorsalis pedis pul GI/Abdominal exam: PRESENT: normal bowel sounds, soft. ABSENT: distended, guarding, mass, organolmegaly, rebound, tenderness Neurological exam: PRESENT: alert, awake, oriented to person, oriented to place, oriented to time, oriented to situation, CN II-XII grossly intact. ABSENT: motor sensory deficit Results Laboratory Results: WBC 5.6 10^3/uL (4.0-10.5) 11/14/19 05:30 RBC 4.71 10^6/uL (4.35-5.55) 11/14/19 05:30 Hgb 14.1 g/dL (13.5-17.0) 11/14/19 05:30 Hct 41.4 % (37.9-51.0) 11/14/19 05:30 MCV 88 fl (80-97) 11/14/19 05:30 MCH 30.0 pg (27.0-33.4) 11/14/19 05:30 MCHC 34.1 g/dL (32.0-36.0) 11/14/19 05:30 RDW 14.3 % (11.5-14.0) H 11/14/19 05:30 Plt Count 251 10^3/uL (150-450) 11/14/19 05:30 Lymph % (Auto) 11.4 % (13-45) L 11/14/19 05:30 Perkins % (Auto) 2.7 % (3-13) L 11/14/19 05:30 Eos % (Auto) 0.0 % (0-6) 11/14/19 05:30 Baso % (Auto) 0.2 % (0-2) 11/14/19 05:30 Absolute Neuts (auto) 4.8 10^3/uL (1.7-8.2) 11/14/19 05:30 Absolute Lymphs (auto) 0.6 10^3/uL (0.5-4.7) 11/14/19 05:30 Absolute Monos (auto) 0.1 10^3/uL (0.1-1.4) 11/14/19 05:30 Absolute Eos (auto) 0.0 10^3/uL (0.0-0.6) 11/14/19 05:30 Absolute Basos (auto) 0.0 10^3/uL (0.0-0.2) 11/14/19 05:30 Seg Neutrophils % 85.7 % (42-78) H 11/14/19 05:30 Carbonic Acid 1.17 mmol/L (1.05-1.35) 11/13/19 15:52 HCO3/H2CO3 Ratio 20:1 11/13/19 15:52 ABG pH 7.41 (7.35-7.45) 11/13/19 15:52 ABG pCO2 39.0 mmHg (35-45) 11/13/19 15:52 ABG pO2 78.1 mmHg (80-100) L 11/13/19 15:52 ABG HCO3 23.9 mmol/L (20-24) 11/13/19 15:52 ABG Total CO2 25.1 mmol/L (23-27) 11/13/19 15:52 ABG O2 Saturation 95.7 % (94-98) 11/13/19 15:52 ABG Base Excess -0.5 mmol/L 11/13/19 15:52 FiO2 2L 11/13/19 15:52 Sodium 137.5 mmol/L (137-145) 11/14/19 05:30 Potassium 4.7 mmol/L (3.6-5.0) 11/14/19 05:30 Chloride 103 mmol/L (98-107) 11/14/19 05:30 Carbon Dioxide 26 mmol/L (22-30) 11/14/19 05:30 Anion Gap 9 (5-19) 11/14/19 05:30 BUN 10 mg/dL (7-20) 11/14/19 05:30 Creatinine 0.69 mg/dL (0.52-1.25) 11/14/19 05:30 Est GFR ( Amer) > 60 (>60) 11/14/19 05:30 Est GFR (MDRD) Non-Af > 60 (>60) 11/14/19 05:30 Glucose 174 mg/dL (75-110) H 11/14/19 05:30 Hemoglobin A1c % 5.9 % (4.7-6.0) 11/14/19 05:30 Calcium 9.5 mg/dL (8.4-10.2) 11/14/19 05:30 Magnesium 2.1 mg/dL (1.6-2.3) 11/14/19 05:30 Total Bilirubin 0.5 mg/dL (0.2-1.3) 11/13/19 10:40 Direct Bilirubin 0.0 mg/dL (0.0-0.4) 11/13/19 10:40 Neonat Total Bilirubin Not Reportable 11/13/19 10:40 Neonat Direct Bilirubin Not Reportable 11/13/19 10:40 Neonat Indirect Bili Not Reportable 11/13/19 10:40 AST 27 U/L (17-59) 11/13/19 10:40 ALT 21 U/L (<50) 11/13/19 10:40 Alkaline Phosphatase 61 U/L (38-126) 11/13/19 10:40 Total Protein 7.2 g/dL (6.3-8.2) 11/13/19 10:40 Albumin 4.2 g/dL (3.5-5.0) 11/13/19 10:40 Triglycerides 79 mg/dL (<150) 11/14/19 05:30 Cholesterol 186.07 mg/dL (0-200) 11/14/19 05:30 LDL Cholesterol Direct 128 mg/dL (<100) H 11/14/19 05:30 VLDL Cholesterol 16.0 mg/dL (10-31) 11/14/19 05:30 HDL Cholesterol 50 mg/dL (>40) 11/14/19 05:30 TSH 0.12 uIU/mL (0.47-4.68) L 11/14/19 05:30 Free T4 0.69 ng/dL (0.78-2.19) L 11/14/19 05:30 Free T3 pg/mL 2.62 pg/mL (2.77-5.27) L 11/14/19 05:30 Impressions: Chest X-Ray 11/13/19 10:23 IMPRESSION: Left basilar pneumonitis. Plan Time Spent: Greater than 30 Minutes Stroke Is this a Stroke Patient?: No Acute Heart Failure - Is this a Heart Failure Patient?: No
[2019-11-17] MEDS: METHYLPREDNISOLONE INJ 40 MG/1 ML SDV IV SCH ×3 (05:24→21:10)
[2019-11-17] MEDS: PANTOPRAZOLE SODIUM 40 MG TABLET.DR PO SCH ×2 (05:24→18:13)
[2019-11-17] MEDS: IPRATROPIUM/ALBUTEROL 0.5-2.5 MG/3 ML AMPUL NEB SCH ×4 (08:39→20:13)
[2019-11-17] MEDS: GUAIFENESIN/CODEINE PHOS 100-10 MG/ 5 ML UDC PO SCH ×4 (10:12→21:10)
[2019-11-17] MEDS: LEVOFLOXACIN 500 MG TABLET PO SCH (10:13)
[2019-11-17] MEDS: ENOXAPARIN SODIUM INJ 40 MG/0.4 ML DISP.SYRIN SUBCUT SCH (10:13)
[2019-11-17] MEDS: DOCUSATE SODIUM 100 MG CAPSULE PO SCH ×2 (10:13→18:13)
[2019-11-17] MEDS: FAMOTIDINE 20 MG TABLET PO SCH ×2 (10:13→21:10)
[2019-11-17] MEDS: FLUTICASONE/UMECLIDIN/VILANTER 100-62.5-25 MCG/DOSE IH SCH (10:14)
[2019-11-17] MEDS: SODIUM CHLORIDE NASAL SPRAY 44 ML NAREB PRN (10:19)
--- NOTE | 2019-11-17 17:58 | PDOC PROGRESS REPORT ---
Subjective Progress Note for:: 11/17/19 Subjective:: Patient has been discharged but apparently the homeless [facility] will not take him with oxygen. He has had no change in his condition. We are looking at placement options. Reason For Visit: ACUTE COPD EXACERBATION Physical Exam Vital Signs: Temp Pulse Resp BP Pulse Ox 97.5 F 73 18 149/70 H 93 11/17/19 11:11 11/17/19 15:58 11/17/19 15:58 11/17/19 11:11 11/17/19 15:58 Intake & Output 11/16/19 11/17/19 11/18/19 06:59 06:59 06:59 Intake Total 1907 1076 360 Balance 1907 1076 360 Weight 88 kg 85.3 kg General appearance: PRESENT: obese Head exam: PRESENT: atraumatic, normocephalic Respiratory exam: PRESENT: clear to auscultation blu. ABSENT: rales, rhonchi, wheezes Pulses: PRESENT: normal dorsalis pedis pul GI/Abdominal exam: PRESENT: normal bowel sounds, soft. ABSENT: distended, guarding, mass, organolmegaly, rebound, tenderness Neurological exam: PRESENT: alert, awake, oriented to person, oriented to place, oriented to time, oriented to situation, CN II-XII grossly intact. ABSENT: motor sensory deficit Results Laboratory Results: 11/14/19 05:30 11/14/19 05:30 Impressions: Chest X-Ray 11/13/19 10:23 IMPRESSION: Left basilar pneumonitis. Assessment and Plan - Diagnosis (1) Chronic hypoxemic respiratory failure Is this a current diagnosis for this admission?: Yes Plan: O2 at 2 L/min (2) Acute exacerbation of chronic obstructive pulmonary disease (COPD) Is this a current diagnosis for this admission?: Yes Plan: Continue steroid burst and bronchodilators - Time Time Spent with patient: 15-24 minutes
[2019-11-18] MEDS: METHYLPREDNISOLONE INJ 40 MG/1 ML SDV IV SCH ×3 (06:14→21:58)
[2019-11-18] MEDS: PANTOPRAZOLE SODIUM 40 MG TABLET.DR PO SCH ×2 (06:15→17:22)
[2019-11-18] MEDS: IPRATROPIUM/ALBUTEROL 0.5-2.5 MG/3 ML AMPUL NEB SCH ×4 (08:20→19:52)
[2019-11-18] MEDS: ENOXAPARIN SODIUM INJ 40 MG/0.4 ML DISP.SYRIN SUBCUT SCH (10:10)
[2019-11-18] MEDS: FAMOTIDINE 20 MG TABLET PO SCH ×2 (10:11→21:58)
[2019-11-18] MEDS: DOCUSATE SODIUM 100 MG CAPSULE PO SCH ×2 (10:11→17:24)
[2019-11-18] MEDS: LEVOFLOXACIN 500 MG TABLET PO SCH (10:11)
[2019-11-18] MEDS: GUAIFENESIN/CODEINE PHOS 100-10 MG/ 5 ML UDC PO SCH ×4 (10:11→21:58)
[2019-11-18] MEDS: FLUTICASONE/UMECLIDIN/VILANTER 100-62.5-25 MCG/DOSE IH SCH (10:12)
--- NOTE | 2019-11-18 17:20 | PDOC PROGRESS REPORT ---
Subjective Progress Note for:: 11/18/19 Subjective:: [facility] has [facility]. He has had no change in his condition. We are looking at placement options. Reason For Visit: ACUTE COPD EXACERBATION Physical Exam Vital Signs: Temp Pulse Resp BP Pulse Ox 97.9 F 78 18 149/74 H 93 11/18/19 14:47 11/18/19 16:18 11/18/19 16:18 11/18/19 14:47 11/18/19 16:18 Intake & Output 11/17/19 11/18/19 11/19/19 06:59 06:59 06:59 Intake Total 1076 2160 1026 Balance 1076 2160 1026 Weight 85.3 kg 90.4 kg General appearance: PRESENT: obese Head exam: PRESENT: atraumatic, normocephalic Respiratory exam: PRESENT: clear to auscultation blu. ABSENT: rales, rhonchi, wheezes Pulses: PRESENT: normal dorsalis pedis pul GI/Abdominal exam: PRESENT: normal bowel sounds, soft. ABSENT: distended, guarding, mass, organolmegaly, rebound, tenderness Neurological exam: PRESENT: alert, awake, oriented to person, oriented to place, oriented to time, oriented to situation, CN II-XII grossly intact. ABSENT: motor sensory deficit Results Laboratory Results: 11/14/19 05:30 11/14/19 05:30 11/13/19 15:57 Blood Blood Culture - Final NO GROWTH IN 5 DAYS 11/13/19 15:33 Blood Blood Culture - Final NO GROWTH IN 5 DAYS Impressions: Chest X-Ray 11/13/19 10:23 IMPRESSION: Left basilar pneumonitis. Assessment and Plan - Diagnosis (1) Chronic hypoxemic respiratory failure Is this a current diagnosis for this admission?: Yes Plan: O2 at 2 L/min (2) Acute exacerbation of chronic obstructive pulmonary disease (COPD) Is this a current diagnosis for this admission?: Yes Plan: Continue steroid burst and bronchodilators - Time Time Spent with patient: 15-24 minutes
[2019-11-19] MEDS: METHYLPREDNISOLONE INJ 40 MG/1 ML SDV IV SCH ×3 (05:23→22:27)
[2019-11-19] MEDS: PANTOPRAZOLE SODIUM 40 MG TABLET.DR PO SCH ×2 (05:24→19:41)
[2019-11-19] MEDS: SODIUM CHLORIDE NASAL SPRAY 44 ML NAREB PRN (05:28)
[2019-11-19] MEDS: IPRATROPIUM/ALBUTEROL 0.5-2.5 MG/3 ML AMPUL NEB SCH ×4 (08:09→19:55)
[2019-11-19] MEDS: DOCUSATE SODIUM 100 MG CAPSULE PO SCH ×2 (10:17→19:40)
[2019-11-19] MEDS: FAMOTIDINE 20 MG TABLET PO SCH ×2 (10:17→22:26)
[2019-11-19] MEDS: ENOXAPARIN SODIUM INJ 40 MG/0.4 ML DISP.SYRIN SUBCUT SCH (10:17)
[2019-11-19] MEDS: LEVOFLOXACIN 500 MG TABLET PO SCH (10:17)
[2019-11-19] MEDS: GUAIFENESIN/CODEINE PHOS 100-10 MG/ 5 ML UDC PO SCH ×3 (10:18→20:30)
[2019-11-19] MEDS: FLUTICASONE/UMECLIDIN/VILANTER 100-62.5-25 MCG/DOSE IH SCH (10:35)
--- NOTE | 2019-11-19 16:11 | PDOC PROGRESS REPORT ---
Subjective Progress Note for:: 11/19/19 Subjective:: Patient has been discharged but apparently the homeless [facility] will not take him with oxygen. He has had no change in his condition. We are looking at placement options. Reason For Visit: ACUTE COPD EXACERBATION Physical Exam Vital Signs: Temp Pulse Resp BP Pulse Ox 97.4 F 88 16 143/77 H 90 L 11/19/19 12:00 11/19/19 16:04 11/19/19 16:04 11/19/19 12:00 11/19/19 16:04 Intake & Output 11/18/19 11/19/19 11/20/19 06:59 06:59 06:59 Intake Total 2160 1656 Balance 2160 1656 Weight 90.4 kg 92.2 kg General appearance: PRESENT: obese Head exam: PRESENT: atraumatic, normocephalic Respiratory exam: PRESENT: clear to auscultation blu. ABSENT: rales, rhonchi, wheezes Pulses: PRESENT: normal dorsalis pedis pul GI/Abdominal exam: PRESENT: normal bowel sounds, soft. ABSENT: distended, guarding, mass, organolmegaly, rebound, tenderness Neurological exam: PRESENT: alert, awake, oriented to person, oriented to place, oriented to time, oriented to situation, CN II-XII grossly intact. ABSENT: motor sensory deficit Results Laboratory Results: 11/14/19 05:30 11/14/19 05:30 11/13/19 15:57 Blood Blood Culture - Final NO GROWTH IN 5 DAYS 11/13/19 15:33 Blood Blood Culture - Final NO GROWTH IN 5 DAYS Impressions: Chest X-Ray 11/13/19 10:23 IMPRESSION: Left basilar pneumonitis. Assessment and Plan - Diagnosis (1) Chronic hypoxemic respiratory failure Is this a current diagnosis for this admission?: Yes Plan: O2 at 2 L/min (2) Acute exacerbation of chronic obstructive pulmonary disease (COPD) Is this a current diagnosis for this admission?: Yes Plan: Continue steroid burst and bronchodilators - Time Time Spent with patient: 15-24 minutes
[2019-11-20] MEDS: GUAIFENESIN/CODEINE PHOS 100-10 MG/ 5 ML UDC PO SCH ×4 (00:07→18:00)
[2019-11-20] MEDS: PANTOPRAZOLE SODIUM 40 MG TABLET.DR PO SCH ×2 (05:20→18:00)
[2019-11-20] MEDS: METHYLPREDNISOLONE INJ 40 MG/1 ML SDV IV SCH ×3 (05:20→21:18)
[2019-11-20] MEDS: IPRATROPIUM/ALBUTEROL 0.5-2.5 MG/3 ML AMPUL NEB SCH ×4 (08:38→20:17)
[2019-11-20] MEDS: ENOXAPARIN SODIUM INJ 40 MG/0.4 ML DISP.SYRIN SUBCUT SCH (10:40)
[2019-11-20] MEDS: FLUTICASONE/UMECLIDIN/VILANTER 100-62.5-25 MCG/DOSE IH SCH (10:41)
[2019-11-20] MEDS: FAMOTIDINE 20 MG TABLET PO SCH ×2 (10:41→21:18)
[2019-11-20] MEDS: DOCUSATE SODIUM 100 MG CAPSULE PO SCH ×2 (10:41→18:00)
--- NOTE | 2019-11-20 16:43 | PDOC PROGRESS REPORT ---
Subjective Progress Note for:: 11/20/19 Subjective:: Patient has been [facility] but [facility]. He has had no change in his condition. We are looking at placement options. Reason For Visit: ACUTE COPD EXACERBATION Physical Exam Vital Signs: Temp Pulse Resp BP Pulse Ox 97.8 F 101 H 19 156/84 H 93 11/20/19 14:59 11/20/19 15:27 11/20/19 15:27 11/20/19 14:59 11/20/19 15:27 Intake & Output 11/19/19 11/20/19 11/21/19 06:59 06:59 06:59 Intake Total 1656 2461 600 Balance 1656 2461 600 Weight 92.2 kg 94.8 kg 94.8 kg General appearance: PRESENT: obese Head exam: PRESENT: atraumatic, normocephalic Respiratory exam: PRESENT: clear to auscultation blu. ABSENT: rales, rhonchi, wheezes Pulses: PRESENT: normal dorsalis pedis pul GI/Abdominal exam: PRESENT: normal bowel sounds, soft. ABSENT: distended, guarding, mass, organolmegaly, rebound, tenderness Neurological exam: PRESENT: alert, awake, oriented to person, oriented to place, oriented to time, oriented to situation, CN II-XII grossly intact. ABSENT: motor sensory deficit Results Laboratory Results: 11/14/19 05:30 11/14/19 05:30 Impressions: Chest X-Ray 11/13/19 10:23 IMPRESSION: Left basilar pneumonitis. Assessment and Plan - Diagnosis (1) Chronic hypoxemic respiratory failure Is this a current diagnosis for this admission?: Yes Plan: O2 at 2 L/min (2) Acute exacerbation of chronic obstructive pulmonary disease (COPD) Is this a current diagnosis for this admission?: Yes Plan: Continue steroid burst and bronchodilators. He will probably finish up his steroids and will probably not need them whenever he leaves the hospital. He is basically a social hold at this point. - Time Time Spent with patient: 15-24 minutes
[2019-11-21] MEDS: GUAIFENESIN/CODEINE PHOS 100-10 MG/ 5 ML UDC PO SCH ×4 (00:13→17:40)
[2019-11-21] MEDS: METHYLPREDNISOLONE INJ 40 MG/1 ML SDV IV SCH ×3 (05:12→22:02)
[2019-11-21] MEDS: PANTOPRAZOLE SODIUM 40 MG TABLET.DR PO SCH ×2 (05:12→17:40)
[2019-11-21] MEDS: IPRATROPIUM/ALBUTEROL 0.5-2.5 MG/3 ML AMPUL NEB SCH ×2 (08:26→12:16)
[2019-11-21] MEDS: FLUTICASONE/UMECLIDIN/VILANTER 100-62.5-25 MCG/DOSE IH SCH (11:21)
[2019-11-21] MEDS: DOCUSATE SODIUM 100 MG CAPSULE PO SCH ×2 (11:21→17:40)
[2019-11-21] MEDS: FAMOTIDINE 20 MG TABLET PO SCH ×2 (11:21→22:01)
[2019-11-21] MEDS: ENOXAPARIN SODIUM INJ 40 MG/0.4 ML DISP.SYRIN SUBCUT SCH (11:22)
--- NOTE | 2019-11-21 13:59 | PDOC PROGRESS REPORT ---
Subjective Progress Note for:: 11/21/19 Subjective:: Patient has been [facility] but [facility]. He has had no change in his condition. We are looking at placement options. Reason For Visit: ACUTE COPD EXACERBATION Physical Exam Vital Signs: Temp Pulse Resp BP Pulse Ox 97.6 F 81 20 138/83 H 92 11/21/19 11:14 11/21/19 11:14 11/21/19 11:14 11/21/19 11:14 11/21/19 11:14 Intake & Output 11/20/19 11/21/19 11/22/19 06:59 06:59 06:59 Intake Total 2461 2560 360 Balance 2461 2560 360 Weight 94.8 kg 92.4 kg General appearance: PRESENT: obese Head exam: PRESENT: atraumatic, normocephalic Respiratory exam: PRESENT: clear to auscultation blu. ABSENT: rales, rhonchi, wheezes Pulses: PRESENT: normal dorsalis pedis pul GI/Abdominal exam: PRESENT: normal bowel sounds, soft. ABSENT: distended, guarding, mass, organolmegaly, rebound, tenderness Neurological exam: PRESENT: alert, awake, oriented to person, oriented to place, oriented to time, oriented to situation, CN II-XII grossly intact. ABSENT: motor sensory deficit Results Laboratory Results: 11/14/19 05:30 11/14/19 05:30 Impressions: Chest X-Ray 11/13/19 10:23 IMPRESSION: Left basilar pneumonitis. Assessment and Plan - Diagnosis (1) Chronic hypoxemic respiratory failure Is this a current diagnosis for this admission?: Yes Plan: O2 at 2 L/min (2) Acute exacerbation of chronic obstructive pulmonary disease (COPD) Is this a current diagnosis for this admission?: Yes Plan: Continue steroid burst and bronchodilators. He will probably finish up his steroids and will probably not need them whenever he leaves the hospital. He is basically a social hold at this point. - Time Time Spent with patient: 15-24 minutes
[2019-11-21] MEDS ORDERED: IPRATROPIUM/ALBUTEROL 0.5-2.5 MG/3 ML AMPUL NEB PRN (14:27)
[2019-11-21] MEDS: SODIUM CHLORIDE NASAL SPRAY 44 ML NAREB PRN (17:44)
[2019-11-21] MEDS: ACETAMINOPHEN 325 MG TABLET PO PRN (22:01)
[2019-11-22] MEDS: GUAIFENESIN/CODEINE PHOS 100-10 MG/ 5 ML UDC PO SCH ×4 (01:21→18:26)
[2019-11-22] MEDS: METHYLPREDNISOLONE INJ 40 MG/1 ML SDV IV SCH ×3 (05:41→22:50)
[2019-11-22] MEDS: PANTOPRAZOLE SODIUM 40 MG TABLET.DR PO SCH ×2 (05:41→18:25)
[2019-11-22] MEDS: DOCUSATE SODIUM 100 MG CAPSULE PO SCH ×2 (09:03→18:25)
[2019-11-22] MEDS: FAMOTIDINE 20 MG TABLET PO SCH ×2 (09:03→22:50)
[2019-11-22] MEDS: ENOXAPARIN SODIUM INJ 40 MG/0.4 ML DISP.SYRIN SUBCUT SCH (09:04)
[2019-11-22] MEDS: FLUTICASONE/UMECLIDIN/VILANTER 100-62.5-25 MCG/DOSE IH SCH (09:04)
--- NOTE | 2019-11-22 17:53 | PDOC PROGRESS REPORT ---
Subjective Progress Note for:: 11/22/19 Subjective:: Patient has been discharged but [facility]. He has had no change in his condition. We are looking at placement options. Reason For Visit: ACUTE COPD EXACERBATION Physical Exam Vital Signs: Temp Pulse Resp BP Pulse Ox 97.5 F 75 18 159/78 H 94 11/22/19 14:50 11/22/19 14:50 11/22/19 14:50 11/22/19 14:50 11/22/19 14:50 Intake & Output 11/21/19 11/22/19 11/23/19 06:59 06:59 06:59 Intake Total 2560 1320 868 Balance 2560 1320 868 Weight 92.4 kg 89.1 kg General appearance: PRESENT: obese Head exam: PRESENT: atraumatic, normocephalic Respiratory exam: PRESENT: clear to auscultation blu. ABSENT: rales, rhonchi, wheezes Pulses: PRESENT: normal dorsalis pedis pul GI/Abdominal exam: PRESENT: normal bowel sounds, soft. ABSENT: distended, guarding, mass, organolmegaly, rebound, tenderness Neurological exam: PRESENT: alert, awake, oriented to person, oriented to place, oriented to time, oriented to situation, CN II-XII grossly intact. ABSENT: motor sensory deficit Results Laboratory Results: 11/14/19 05:30 11/14/19 05:30 Impressions: Chest X-Ray 11/13/19 10:23 IMPRESSION: Left basilar pneumonitis. Assessment and Plan - Diagnosis (1) Chronic hypoxemic respiratory failure Is this a current diagnosis for this admission?: Yes Plan: O2 at 2 L/min (2) Acute exacerbation of chronic obstructive pulmonary disease (COPD) Is this a current diagnosis for this admission?: Yes Plan: Continue steroid burst and bronchodilators. He will probably finish up his steroids and will probably not need them whenever he leaves the hospital. He is basically a social hold at this point. - Time Time Spent with patient: 15-24 minutes
[2019-11-23] MEDS: GUAIFENESIN/CODEINE PHOS 100-10 MG/ 5 ML UDC PO SCH ×4 (00:53→17:20)
[2019-11-23] MEDS: METHYLPREDNISOLONE INJ 40 MG/1 ML SDV IV SCH ×2 (06:05→15:18)
[2019-11-23] MEDS: PANTOPRAZOLE SODIUM 40 MG TABLET.DR PO SCH ×2 (06:05→17:20)
[2019-11-23] MEDS: FAMOTIDINE 20 MG TABLET PO SCH ×2 (11:32→22:07)
[2019-11-23] MEDS: DOCUSATE SODIUM 100 MG CAPSULE PO SCH ×2 (11:32→17:20)
[2019-11-23] MEDS: ENOXAPARIN SODIUM INJ 40 MG/0.4 ML DISP.SYRIN SUBCUT SCH (11:32)
[2019-11-23] MEDS: FLUTICASONE/UMECLIDIN/VILANTER 100-62.5-25 MCG/DOSE IH SCH (11:34)
[2019-11-23] MEDS: SODIUM CHLORIDE NASAL SPRAY 44 ML NAREB PRN (11:35)
--- NOTE | 2019-11-23 17:22 | PDOC PROGRESS REPORT ---
Subjective Progress Note for:: 11/23/19 Subjective:: Patient was admitted for COPD exacerbation. He improved clinically with steroids and breathing treatments. He has been medically stable for discharge. Unfortunately he requires home O2 but the [facility] [place] [facility] does not accept patients requiring home O2. Patient is just awaiting placement. Denies acute complaints. Reason For Visit: ACUTE COPD EXACERBATION Physical Exam Vital Signs: Temp Pulse Resp BP Pulse Ox 97.7 F 88 18 126/87 H 95 11/23/19 15:11 11/23/19 15:11 11/23/19 15:11 11/23/19 15:11 11/23/19 15:11 Intake & Output 11/22/19 11/23/19 11/24/19 06:59 06:59 06:59 Intake Total 1320 1995 Output Total 2 Balance 1320 1993 Weight 196 lb 6.91 oz 195 lb 12.328 oz General appearance: PRESENT: no acute distress, well-developed, well-nourished Head exam: PRESENT: atraumatic, normocephalic Eye exam: PRESENT: conjunctiva pink, EOMI, PERRLA. ABSENT: scleral icterus Ear exam: PRESENT: normal external ear exam Mouth exam: PRESENT: moist, tongue midline Neck exam: ABSENT: carotid bruit, JVD, lymphadenopathy, thyromegaly Respiratory exam: PRESENT: clear to auscultation blu. ABSENT: rales, rhonchi, wheezes Cardiovascular exam: PRESENT: RRR. ABSENT: diastolic murmur, rubs, systolic murmur Pulses: PRESENT: normal dorsalis pedis pul GI/Abdominal exam: PRESENT: normal bowel sounds, soft. ABSENT: distended, guarding, mass, organolmegaly, rebound, tenderness Rectal exam: PRESENT: deferred Extremities exam: PRESENT: full ROM. ABSENT: calf tenderness, clubbing, pedal edema Neurological exam: PRESENT: alert, awake, oriented to person, oriented to place, oriented to time, oriented to situation, CN II-XII grossly intact. ABSENT: motor sensory deficit Results Laboratory Results: 11/14/19 05:30 11/14/19 05:30 Impressions: Chest X-Ray 11/13/19 10:23 IMPRESSION: Left basilar pneumonitis. Assessment and Plan - Diagnosis (1) Acute exacerbation of chronic obstructive pulmonary disease (COPD) Is this a current diagnosis for this admission?: Yes Plan: Resolved. Switch IV Solu-Medrol to prednisone. Continue breathing treatments as needed.
[2019-11-23] MEDS: PREDNISONE 20 MG TABLET PO SCH (19:02)
[2019-11-24] MEDS: GUAIFENESIN/CODEINE PHOS 100-10 MG/ 5 ML UDC PO SCH ×5 (00:11→23:05)
[2019-11-24] MEDS: PANTOPRAZOLE SODIUM 40 MG TABLET.DR PO SCH ×2 (05:41→17:46)
[2019-11-24] MEDS: FLUTICASONE/UMECLIDIN/VILANTER 100-62.5-25 MCG/DOSE IH SCH (08:59)
[2019-11-24] MEDS: ENOXAPARIN SODIUM INJ 40 MG/0.4 ML DISP.SYRIN SUBCUT SCH (08:59)
[2019-11-24] MEDS: DOCUSATE SODIUM 100 MG CAPSULE PO SCH ×2 (08:59→17:46)
[2019-11-24] MEDS: FAMOTIDINE 20 MG TABLET PO SCH ×2 (08:59→22:22)
[2019-11-24] MEDS: PREDNISONE 20 MG TABLET PO SCH ×2 (08:59→17:46)
--- NOTE | 2019-11-24 14:46 | PDOC PROGRESS REPORT ---
Subjective Progress Note for:: 11/24/19 Subjective:: Patient was admitted for COPD exacerbation. He improved clinically with steroids and breathing treatments. He has been medically stable for discharge. Unfortunately he requires home O2 but the [facility] not accept patients requiring home O2. Denies acute complaints. 11/24: No acute event overnight. Denies acute complaints. Patient is just awaiting placement. Reason For Visit: ACUTE COPD EXACERBATION Physical Exam Vital Signs: Temp Pulse Resp BP Pulse Ox 97.3 F 74 18 155/81 H 98 11/24/19 11:07 11/24/19 11:07 11/24/19 11:07 11/24/19 11:07 11/24/19 11:07 Intake & Output 11/23/19 11/24/19 11/25/19 06:59 06:59 06:59 Intake Total 1995 2498 240 Output Total 2 Balance 1993 2498 240 Weight 195 lb 12.328 oz 195 lb 1.745 oz General appearance: PRESENT: no acute distress, well-developed, well-nourished Head exam: PRESENT: atraumatic, normocephalic Eye exam: PRESENT: conjunctiva pink, EOMI, PERRLA. ABSENT: scleral icterus Ear exam: PRESENT: normal external ear exam Mouth exam: PRESENT: moist, tongue midline Neck exam: ABSENT: carotid bruit, JVD, lymphadenopathy, thyromegaly Respiratory exam: PRESENT: clear to auscultation blu. ABSENT: rales, rhonchi, wheezes Cardiovascular exam: PRESENT: RRR. ABSENT: diastolic murmur, rubs, systolic murmur Pulses: PRESENT: normal dorsalis pedis pul GI/Abdominal exam: PRESENT: normal bowel sounds, soft. ABSENT: distended, guarding, mass, organolmegaly, rebound, tenderness Rectal exam: PRESENT: deferred Extremities exam: PRESENT: full ROM. ABSENT: calf tenderness, clubbing, pedal edema Neurological exam: PRESENT: alert, awake, oriented to person, oriented to place, oriented to time, oriented to situation, CN II-XII grossly intact. ABSENT: motor sensory deficit Results Laboratory Results: 11/14/19 05:30 11/14/19 05:30 Impressions: Chest X-Ray 11/13/19 10:23 IMPRESSION: Left basilar pneumonitis. Assessment and Plan - Diagnosis (1) Acute exacerbation of chronic obstructive pulmonary disease (COPD) Is this a current diagnosis for this admission?: Yes Plan: Resolved. Continue prednisone. Continue breathing treatments as needed. - Time Time Spent with patient: 15-24 minutes
[2019-11-25] MEDS: GUAIFENESIN/CODEINE PHOS 100-10 MG/ 5 ML UDC PO SCH ×3 (05:36→17:07)
[2019-11-25] MEDS: PANTOPRAZOLE SODIUM 40 MG TABLET.DR PO SCH ×2 (05:36→17:08)
[2019-11-25] MEDS: FLUTICASONE/UMECLIDIN/VILANTER 100-62.5-25 MCG/DOSE IH SCH (09:06)
[2019-11-25] MEDS: DOCUSATE SODIUM 100 MG CAPSULE PO SCH ×2 (09:06→17:08)
[2019-11-25] MEDS: PREDNISONE 20 MG TABLET PO SCH ×2 (09:06→17:08)
[2019-11-25] MEDS: FAMOTIDINE 20 MG TABLET PO SCH ×2 (09:06→21:02)
[2019-11-25] MEDS: ENOXAPARIN SODIUM INJ 40 MG/0.4 ML DISP.SYRIN SUBCUT SCH (09:06)
--- NOTE | 2019-11-25 15:51 | PDOC PROGRESS REPORT ---
Subjective Progress Note for:: 11/25/19 Subjective:: Patient was admitted for COPD exacerbation. He improved clinically with steroids and breathing treatments. He has been medically stable for discharge. Unfortunately he requires home O2 but the homeless [facility] was [facility] to does not accept patients requiring home O2. Denies acute complaints. 11/25: No acute event overnight. Denies acute complaints. Denies chest pain or shortness of breath. Patient is just awaiting placement. Reason For Visit: ACUTE COPD EXACERBATION Physical Exam Vital Signs: Temp Pulse Resp BP Pulse Ox 97.7 F 82 18 142/71 H 95 11/25/19 11:17 11/25/19 11:17 11/25/19 11:17 11/25/19 11:17 11/25/19 11:17 Intake & Output 11/24/19 11/25/19 11/26/19 06:59 06:59 06:59 Intake Total 2498 1508 Balance 2498 1508 Weight 195 lb 1.745 oz 194 lb 14.218 oz General appearance: PRESENT: no acute distress, well-developed, well-nourished Head exam: PRESENT: atraumatic, normocephalic Eye exam: PRESENT: conjunctiva pink, EOMI, PERRLA. ABSENT: scleral icterus Ear exam: PRESENT: normal external ear exam Mouth exam: PRESENT: moist, tongue midline Neck exam: ABSENT: carotid bruit, JVD, lymphadenopathy, thyromegaly Respiratory exam: PRESENT: rhonchi. ABSENT: rales, wheezes Cardiovascular exam: PRESENT: RRR. ABSENT: diastolic murmur, rubs, systolic murmur Pulses: PRESENT: normal dorsalis pedis pul GI/Abdominal exam: PRESENT: normal bowel sounds, soft. ABSENT: distended, guarding, mass, organolmegaly, rebound, tenderness Rectal exam: PRESENT: deferred Neurological exam: PRESENT: alert, awake, oriented to person, oriented to place, oriented to time, oriented to situation, CN II-XII grossly intact. ABSENT: motor sensory deficit Results Laboratory Results: 11/14/19 05:30 11/14/19 05:30 Impressions: Chest X-Ray 11/13/19 10:23 IMPRESSION: Left basilar pneumonitis. Assessment and Plan - Diagnosis (1) Acute exacerbation of chronic obstructive pulmonary disease (COPD) Is this a current diagnosis for this admission?: Yes Plan: Resolved. Continue prednisone. Continue breathing treatments as needed. - Time Time Spent with patient: 15-24 minutes
[2019-11-26] MEDS: GUAIFENESIN/CODEINE PHOS 100-10 MG/ 5 ML UDC PO SCH ×4 (05:59→17:12)
[2019-11-26] MEDS: PANTOPRAZOLE SODIUM 40 MG TABLET.DR PO SCH ×2 (05:59→17:12)
[2019-11-26] MEDS: FLUTICASONE/UMECLIDIN/VILANTER 100-62.5-25 MCG/DOSE IH SCH (10:30)
[2019-11-26] MEDS: FAMOTIDINE 20 MG TABLET PO SCH ×2 (10:30→21:14)
[2019-11-26] MEDS: PREDNISONE 20 MG TABLET PO SCH ×2 (10:30→17:12)
[2019-11-26] MEDS: SODIUM CHLORIDE NASAL SPRAY 44 ML NAREB PRN (10:31)
[2019-11-26] MEDS: ENOXAPARIN SODIUM INJ 40 MG/0.4 ML DISP.SYRIN SUBCUT SCH (10:31)
[2019-11-26] MEDS: DOCUSATE SODIUM 100 MG CAPSULE PO SCH ×2 (10:31→17:12)
--- NOTE | 2019-11-26 15:55 | PDOC PROGRESS REPORT ---
Subjective Progress Note for:: 11/26/19 Subjective:: Patient was admitted for COPD exacerbation. He improved clinically with steroids and breathing treatments. He has been medically stable for discharge. Unfortunately he requires home O2 but the [facility] [place] [facility] does not accept patients requiring home O2. Denies acute complaints. 11/26: No acute event overnight. Denies acute complaints. Denies chest pain or shortness of breath. Encouraged to increase activity and ambulate. Patient is just awaiting placement. Reason For Visit: ACUTE COPD EXACERBATION Physical Exam Vital Signs: Temp Pulse Resp BP Pulse Ox 97.3 F 77 19 153/74 H 98 11/26/19 11:41 11/26/19 11:41 11/26/19 11:41 11/26/19 11:41 11/26/19 11:41 Intake & Output 11/25/19 11/26/19 11/27/19 06:59 06:59 06:59 Intake Total 1508 2608 1379 Balance 1508 2608 1379 Weight 194 lb 14.218 oz 199 lb 11.821 oz 199 lb 11.821 oz General appearance: PRESENT: no acute distress, well-developed, well-nourished Head exam: PRESENT: atraumatic, normocephalic Eye exam: PRESENT: conjunctiva pink, EOMI, PERRLA. ABSENT: scleral icterus Ear exam: PRESENT: normal external ear exam Mouth exam: PRESENT: moist, tongue midline Neck exam: ABSENT: carotid bruit, JVD, lymphadenopathy, thyromegaly Respiratory exam: PRESENT: clear to auscultation blu. ABSENT: rales, rhonchi, wheezes Cardiovascular exam: PRESENT: RRR. ABSENT: diastolic murmur, rubs, systolic murmur Pulses: PRESENT: normal dorsalis pedis pul GI/Abdominal exam: PRESENT: normal bowel sounds, soft. ABSENT: distended, guarding, mass, organolmegaly, rebound, tenderness Rectal exam: PRESENT: deferred Extremities exam: PRESENT: full ROM. ABSENT: calf tenderness, clubbing, pedal edema Neurological exam: PRESENT: alert, awake, oriented to person, oriented to place, oriented to time, oriented to situation, CN II-XII grossly intact. ABSENT: motor sensory deficit Results Laboratory Results: 11/14/19 05:30 11/14/19 05:30 Impressions: Chest X-Ray 11/13/19 10:23 IMPRESSION: Left basilar pneumonitis. Assessment and Plan - Diagnosis (1) Acute exacerbation of chronic obstructive pulmonary disease (COPD) Is this a current diagnosis for this admission?: Yes Plan: Resolved. Continue prednisone. Continue breathing treatments as needed. - Time Time Spent with patient: 15-24 minutes
[2019-11-27] MEDS: PANTOPRAZOLE SODIUM 40 MG TABLET.DR PO SCH ×2 (05:37→17:59)
[2019-11-27] MEDS: GUAIFENESIN/CODEINE PHOS 100-10 MG/ 5 ML UDC PO SCH ×4 (05:37→17:59)
[2019-11-27] MEDS: DOCUSATE SODIUM 100 MG CAPSULE PO SCH ×2 (10:50→17:59)
[2019-11-27] MEDS: ENOXAPARIN SODIUM INJ 40 MG/0.4 ML DISP.SYRIN SUBCUT SCH (10:51)
[2019-11-27] MEDS: FAMOTIDINE 20 MG TABLET PO SCH ×2 (10:51→21:21)
[2019-11-27] MEDS: PREDNISONE 20 MG TABLET PO SCH ×2 (10:51→17:59)
[2019-11-27] MEDS: FLUTICASONE/UMECLIDIN/VILANTER 100-62.5-25 MCG/DOSE IH SCH (10:53)
--- NOTE | 2019-11-27 11:28 | PDOC PROGRESS REPORT ---
Subjective Progress Note for:: 11/27/19 Subjective:: Patient was admitted for COPD exacerbation. He improved clinically with steroids and breathing treatments. He has been medically stable for discharge. Unfortunately he requires home O2 but the homeless group home he was supposed to be going to does not accept patients requiring home O2. Denies acute complaints. 11/27: No acute event overnight. Denies acute complaints. Denies chest pain or shortness of breath. Patient is just awaiting placement. Reason For Visit: ACUTE COPD EXACERBATION Physical Exam Vital Signs: Temp Pulse Resp BP Pulse Ox 97.5 F 79 18 147/79 H 96 11/27/19 07:51 11/27/19 07:51 11/27/19 07:51 11/27/19 07:51 11/27/19 07:51 Intake & Output 11/26/19 11/27/19 11/28/19 06:59 06:59 06:59 Intake Total 2608 1823 Balance 2608 1823 Weight 199 lb 11.821 oz 199 lb 11.821 oz General appearance: PRESENT: no acute distress, well-developed, well-nourished Head exam: PRESENT: atraumatic, normocephalic Eye exam: PRESENT: conjunctiva pink, EOMI, PERRLA. ABSENT: scleral icterus Ear exam: PRESENT: normal external ear exam Mouth exam: PRESENT: moist, tongue midline Neck exam: ABSENT: carotid bruit, JVD, lymphadenopathy, thyromegaly Respiratory exam: PRESENT: rhonchi. ABSENT: rales, wheezes Cardiovascular exam: PRESENT: RRR. ABSENT: diastolic murmur, rubs, systolic murmur Pulses: PRESENT: normal dorsalis pedis pul GI/Abdominal exam: PRESENT: normal bowel sounds, soft. ABSENT: distended, guarding, mass, organolmegaly, rebound, tenderness Rectal exam: PRESENT: deferred Extremities exam: PRESENT: full ROM. ABSENT: calf tenderness, clubbing, pedal edema Neurological exam: PRESENT: alert, awake, oriented to person, oriented to place, oriented to time, oriented to situation, CN II-XII grossly intact. ABSENT: motor sensory deficit Results Laboratory Results: 11/14/19 05:30 11/14/19 05:30 Impressions: Chest X-Ray 11/13/19 10:23 IMPRESSION: Left basilar pneumonitis. Assessment and Plan - Diagnosis (1) Acute exacerbation of chronic obstructive pulmonary disease (COPD) Is this a current diagnosis for this admission?: Yes Plan: Resolved. Continue prednisone. Continue breathing treatments as needed. - Time Time Spent with patient: 15-24 minutes
[2019-11-27] MEDS: ACETAMINOPHEN 325 MG TABLET PO PRN ×2 (12:27→21:21)
[2019-11-28] MEDS: GUAIFENESIN/CODEINE PHOS 100-10 MG/ 5 ML UDC PO SCH ×4 (00:37→17:56)
[2019-11-28] MEDS: ACETAMINOPHEN 325 MG TABLET PO PRN ×3 (05:11→21:03)
[2019-11-28] MEDS: PANTOPRAZOLE SODIUM 40 MG TABLET.DR PO SCH ×2 (05:11→17:56)
[2019-11-28] MEDS: FLUTICASONE/UMECLIDIN/VILANTER 100-62.5-25 MCG/DOSE IH SCH (10:58)
[2019-11-28] MEDS: DOCUSATE SODIUM 100 MG CAPSULE PO SCH ×2 (10:59→17:56)
[2019-11-28] MEDS: PREDNISONE 20 MG TABLET PO SCH (10:59)
[2019-11-28] MEDS: ENOXAPARIN SODIUM INJ 40 MG/0.4 ML DISP.SYRIN SUBCUT SCH (10:59)
[2019-11-28] MEDS: FAMOTIDINE 20 MG TABLET PO SCH ×2 (10:59→21:03)
--- NOTE | 2019-11-28 11:44 | PDOC PROGRESS REPORT ---
Subjective Progress Note for:: 11/28/19 Subjective:: Patient was admitted for COPD exacerbation. He improved clinically with steroids and breathing treatments. He has been medically stable for discharge. Unfortunately he requires home O2 but the homeless care home he was supposed to be going to does not accept patients requiring home O2. Denies acute complaints. 11/28: No acute event overnight. Denies acute complaints. Denies chest pain or shortness of breath. Patient is just awaiting placement. Reason For Visit: ACUTE COPD EXACERBATION Physical Exam Vital Signs: Temp Pulse Resp BP Pulse Ox 97.2 F 73 18 161/67 H 96 11/28/19 10:47 11/28/19 10:47 11/28/19 10:47 11/28/19 10:47 11/28/19 10:47 Intake & Output 11/27/19 11/28/19 11/29/19 06:59 06:59 06:59 Intake Total 1823 1575 Output Total 400 Balance 1823 1175 Weight 199 lb 11.821 oz 207 lb 10.807 oz General appearance: PRESENT: no acute distress, well-developed, well-nourished Head exam: PRESENT: atraumatic, normocephalic Eye exam: PRESENT: conjunctiva pink, EOMI, PERRLA. ABSENT: scleral icterus Ear exam: PRESENT: normal external ear exam Mouth exam: PRESENT: moist, tongue midline Neck exam: ABSENT: carotid bruit, JVD, lymphadenopathy, thyromegaly Respiratory exam: PRESENT: clear to auscultation blu. ABSENT: rales, rhonchi, wheezes Cardiovascular exam: PRESENT: RRR. ABSENT: diastolic murmur, rubs, systolic murmur Pulses: PRESENT: normal dorsalis pedis pul GI/Abdominal exam: PRESENT: normal bowel sounds, soft. ABSENT: distended, guarding, mass, organolmegaly, rebound, tenderness Rectal exam: PRESENT: deferred Extremities exam: PRESENT: full ROM. ABSENT: calf tenderness, clubbing, pedal edema Neurological exam: PRESENT: alert, awake, oriented to person, oriented to place, oriented to time, oriented to situation, CN II-XII grossly intact. ABSENT: motor sensory deficit Results Laboratory Results: 11/14/19 05:30 11/14/19 05:30 Impressions: Chest X-Ray 11/13/19 10:23 IMPRESSION: Left basilar pneumonitis. Assessment and Plan - Diagnosis (1) Acute exacerbation of chronic obstructive pulmonary disease (COPD) Is this a current diagnosis for this admission?: Yes Plan: Resolved. Continue prednisone. Continue breathing treatments as needed. 11/28: Decrease prednisone to 10 mg daily today then DC in 2 days. - Time Time Spent with patient: 15-24 minutes
[2019-11-29] MEDS: GUAIFENESIN/CODEINE PHOS 100-10 MG/ 5 ML UDC PO SCH ×4 (00:30→17:14)
[2019-11-29] MEDS: PANTOPRAZOLE SODIUM 40 MG TABLET.DR PO SCH ×2 (05:26→17:13)
[2019-11-29] MEDS: ACETAMINOPHEN 325 MG TABLET PO PRN ×2 (05:26→09:57)
[2019-11-29] MEDS: ENOXAPARIN SODIUM INJ 40 MG/0.4 ML DISP.SYRIN SUBCUT SCH (09:56)
[2019-11-29] MEDS: PREDNISONE 10 MG TABLET PO SCH (09:56)
[2019-11-29] MEDS: DOCUSATE SODIUM 100 MG CAPSULE PO SCH ×2 (09:56→17:13)
[2019-11-29] MEDS: FAMOTIDINE 20 MG TABLET PO SCH ×2 (09:56→22:12)
[2019-11-29] MEDS: FLUTICASONE/UMECLIDIN/VILANTER 100-62.5-25 MCG/DOSE IH SCH (09:57)
[2019-11-29] MEDS ORDERED: PREDNISONE 20 MG TABLET PO SCH (10:00)
--- NOTE | 2019-11-29 14:30 | PDOC PROGRESS REPORT ---
Subjective Progress Note for:: 11/29/19 Subjective:: Patient was admitted for COPD exacerbation. He improved clinically with steroids and breathing treatments. He has been medically stable for discharge. Unfortunately he requires home O2 but the homeless care home he was supposed to be going to does not accept patients requiring home O2. Denies acute complaints. 11/29: No acute event overnight. Denies acute complaints aside from neck and left shoulder pain. Denies chest pain or shortness of breath. Patient is just awaiting placement. Reason For Visit: ACUTE COPD EXACERBATION Physical Exam Vital Signs: Temp Pulse Resp BP Pulse Ox 97.5 F 66 18 122/54 L 91 L 11/29/19 07:06 11/29/19 07:06 11/29/19 07:06 11/29/19 07:06 11/29/19 13:07 Intake & Output 11/28/19 11/29/19 11/30/19 06:59 06:59 06:59 Intake Total 1575 1360 Output Total 400 Balance 1175 1360 Weight 207 lb 10.807 oz 211 lb 3.245 oz General appearance: PRESENT: no acute distress, well-developed, well-nourished Head exam: PRESENT: atraumatic, normocephalic Eye exam: PRESENT: conjunctiva pink, EOMI, PERRLA. ABSENT: scleral icterus Ear exam: PRESENT: normal external ear exam Mouth exam: PRESENT: moist, tongue midline Neck exam: ABSENT: carotid bruit, JVD, lymphadenopathy, thyromegaly Respiratory exam: PRESENT: clear to auscultation blu. ABSENT: rales, rhonchi, wheezes Cardiovascular exam: PRESENT: RRR. ABSENT: diastolic murmur, rubs, systolic murmur Pulses: PRESENT: normal dorsalis pedis pul GI/Abdominal exam: PRESENT: normal bowel sounds, soft. ABSENT: distended, guarding, mass, organolmegaly, rebound, tenderness Rectal exam: PRESENT: deferred Extremities exam: PRESENT: full ROM. ABSENT: calf tenderness, clubbing, pedal edema Neurological exam: PRESENT: alert, awake, oriented to person, oriented to place, oriented to time, oriented to situation, CN II-XII grossly intact. ABSENT: motor sensory deficit Results Laboratory Results: 11/14/19 05:30 11/14/19 05:30 Impressions: Chest X-Ray 11/13/19 10:23 IMPRESSION: Left basilar pneumonitis. Assessment and Plan - Diagnosis (1) Acute exacerbation of chronic obstructive pulmonary disease (COPD) Is this a current diagnosis for this admission?: Yes Plan: Resolved. Continue prednisone. Continue breathing treatments as needed. 11/28: Decrease prednisone to 10 mg daily today then DC in 2 days. - Time Time Spent with patient: 15-24 minutes
--- NOTE | 2019-11-29 14:44 | RADIOLOGY REPORT (SQ) ---
EXAM DESCRIPTION: CERV SP 3 VIEW OR LESS COMPLETED DATE/TIME: 11/29/2019 2:30 pm REASON FOR STUDY: neck pain COMPARISON: None. NUMBER OF VIEWS: Three views. TECHNIQUE: AP, lateral and odontoid radiographic images acquired of the cervical spine. LIMITATIONS: None. FINDINGS: MINERALIZATION: Normal. ALIGNMENT: Reversal of cervical curvature VERTEBRAE: Vertebral bodies of normal height. DISCS: Disc space loss of height at C4-5, C5-6, C6-7 HARDWARE: None in the spine. SOFT TISSUES: Heavily calcified carotid bifurcations OTHER: No other significant finding. IMPRESSION: Diffuse degenerative disc changes in the midcervical spine with reversal of cervical cur vature TECHNICAL DOCUMENTATION: JOB ID: [id number] 2010 [employer]- All Rights Reserved Reading location - IP/workstation name: [email or web address]
--- NOTE | 2019-11-29 14:45 | RADIOLOGY REPORT (SQ) ---
EXAM DESCRIPTION: SHOULDER LEFT 2 OR MORE VIEWS COMPLETED DATE/TIME: 11/29/2019 2:30 pm REASON FOR STUDY: left shoulder pain COMPARISON: None. NUMBER OF VIEWS: Three views. TECHNIQUE: Internal rotation, external rotation, and Y view images acquired of the left shoulder. LIMITATIONS: None. FINDINGS: MINERALIZATION: Normal. BONES: No acute fracture. No worrisome bone lesions. JOINTS: No glenohumeral joint malalignment. No AC joint widening. Mild bony spurring at the acromio clavicular joint VISUALIZED LUNGS AND RIBS: No pneumothorax. No rib fracture. SOFT TISSUES: No radiopaque foreign body. OTHER: No other significant finding. IMPRESSION: NEGATIVE STUDY OF THE LEFT SHOULDER. NO RADIOGRAPHIC EVIDENCE OF ACUTE INJURY. TECHNICAL DOCUMENTATION: JOB ID: [id number] 2010 [employer]- All Rights Reserved Reading location - IP/workstation name: [email or web address]
[2019-11-29 15:23] LABS: HEMATOCRIT 46.1 % (37.9-51.0); HEMOGLOBIN 15.2 g/dL (13.5-17.0); MEAN CORPUSCULAR HEMOGLOBIN 29.3 pg (27.0-33.4); MEAN CORPUSCULAR VOLUME 89 fl (80-97); PLATELET COUNT 194 10^3/uL (150-450); RED CELL DISTRIBUTION WIDTH 15.2 % (11.5-14.0); WHITE BLOOD COUNT 14.3 10^3/uL (4.0-10.5)
[2019-11-29 15:42] LABS: ANION GAP 7 (5-19); BLOOD UREA NITROGEN 18 mg/dL (7-20); CALCIUM 8.9 mg/dL (8.4-10.2); CARBON DIOXIDE 32 mmol/L (22-30); CHLORIDE 96 mmol/L (98-107); GLUCOSE 116 mg/dL (75-110); POTASSIUM 5.1 mmol/L (3.6-5.0)
[2019-11-29 16:09] LABS: ABSOLUTE MONOCYTES # (MANUAL) 1.7 10^3/uL (0.1-1.4); ANISOCYTOSIS SLIGHT; BASOPHILS % (MANUAL) 0 % (0-2); EOSINOPHILS % (MANUAL) 0 % (0-6); LYMPHOCYTES % (MANUAL) 7 % (13-45); MONOCYTES % (MANUAL) 12 % (3-13); PLATELET COMMENT ADEQUATE; SEGMENTED NEUTROPHILS % (MAN) 81 % (42-78); TOTAL CELLS COUNTED 100
[2019-11-29 16:10] LABS: HYPOCHROMASIA SLIGHT
[2019-11-29] MEDS: LIDOCAINE 5% (700 MG) TRANSDERMAL ADH..PATCH TP SCH (22:12)
[2019-11-30] MEDS: GUAIFENESIN/CODEINE PHOS 100-10 MG/ 5 ML UDC PO SCH ×5 (00:32→23:22)
[2019-11-30] MEDS: PANTOPRAZOLE SODIUM 40 MG TABLET.DR PO SCH ×2 (06:27→17:46)
[2019-11-30] MEDS: FAMOTIDINE 20 MG TABLET PO SCH ×2 (10:33→21:10)
[2019-11-30] MEDS: DOCUSATE SODIUM 100 MG CAPSULE PO SCH ×2 (10:33→17:46)
[2019-11-30] MEDS: FLUTICASONE/UMECLIDIN/VILANTER 100-62.5-25 MCG/DOSE IH SCH (10:34)
[2019-11-30] MEDS: PREDNISONE 10 MG TABLET PO SCH (10:34)
[2019-11-30] MEDS: LIDOCAINE 5% (700 MG) TRANSDERMAL ADH..PATCH TP SCH (10:34)
[2019-11-30] MEDS: ENOXAPARIN SODIUM INJ 40 MG/0.4 ML DISP.SYRIN SUBCUT SCH (10:35)
--- NOTE | 2019-11-30 14:54 | PDOC PROGRESS REPORT ---
Subjective Progress Note for:: 11/30/19 Subjective:: He ambulated on room air and his oxygen saturations remained in the mid 90s. He no longer needs home oxygen. Reason For Visit: ACUTE COPD EXACERBATION Physical Exam Vital Signs: Temp Pulse Resp BP Pulse Ox 98.2 F 73 22 H 102/54 L 96 11/30/19 12:00 11/30/19 12:00 11/30/19 12:00 11/30/19 12:00 11/30/19 12:00 Intake & Output 11/29/19 11/30/19 12/01/19 06:59 06:59 06:59 Intake Total 1360 370 275 Balance 1360 370 275 Weight 95.8 kg 95.5 kg General appearance: PRESENT: obese Head exam: PRESENT: atraumatic, normocephalic Respiratory exam: PRESENT: clear to auscultation blu. ABSENT: rales, rhonchi, wheezes Pulses: PRESENT: normal dorsalis pedis pul GI/Abdominal exam: PRESENT: normal bowel sounds, soft. ABSENT: distended, guarding, mass, organolmegaly, rebound, tenderness Neurological exam: PRESENT: alert, awake, oriented to person, oriented to place, oriented to time, oriented to situation, CN II-XII grossly intact. ABSENT: motor sensory deficit Results Laboratory Results: 11/29/19 15:02 11/29/19 15:02 11/29/19 11/29/19 15:02 15:02 WBC 14.3 H RBC 5.20 Hgb 15.2 Hct 46.1 MCV 89 MCH 29.3 MCHC 33.0 RDW 15.2 H Plt Count 194 Seg Neutrophils % Not Reportable Sodium 134.6 L Potassium 5.1 H Chloride 96 L Carbon Dioxide 32 H Anion Gap 7 BUN 18 Creatinine 0.72 Est GFR ( Amer) > 60 Glucose 116 H Calcium 8.9 Impressions: Chest X-Ray 11/13/19 10:23 IMPRESSION: Left basilar pneumonitis. Shoulder X-Ray 11/29/19 00:00 IMPRESSION: NEGATIVE STUDY OF THE LEFT SHOULDER. NO RADIOGRAPHIC EVIDENCE OF ACUTE INJURY. Cervical Spine X-Ray 11/29/19 11:00 IMPRESSION: Diffuse degenerative disc changes in the midcervical spine with reversal of cervical curvature Assessment and Plan - Diagnosis (1) Chronic hypoxemic respiratory failure Is this a current diagnosis for this admission?: Yes Plan: Seemingly resolved. As previously noted, he ambulated on room air and his SPO2 remained in the mid 90s. (2) Acute exacerbation of chronic obstructive pulmonary disease (COPD) Is this a current diagnosis for this admission?: Yes Plan: Resolved. We are now trying to determine a disposition because [facility] - Time Time Spent with patient: 15-24 minutes
[2019-12-01] MEDS: GUAIFENESIN/CODEINE PHOS 100-10 MG/ 5 ML UDC PO SCH ×2 (05:20→11:16)
[2019-12-01] MEDS: PANTOPRAZOLE SODIUM 40 MG TABLET.DR PO SCH (05:20)
[2019-12-01] MEDS: ENOXAPARIN SODIUM INJ 40 MG/0.4 ML DISP.SYRIN SUBCUT SCH (09:15)
[2019-12-01] MEDS: LIDOCAINE 5% (700 MG) TRANSDERMAL ADH..PATCH TP SCH (09:22)
[2019-12-01] MEDS: DOCUSATE SODIUM 100 MG CAPSULE PO SCH (09:22)
[2019-12-01] MEDS: FAMOTIDINE 20 MG TABLET PO SCH (09:22)
[2019-12-01] MEDS: PREDNISONE 10 MG TABLET PO SCH (09:23)
[2019-12-01] MEDS: FLUTICASONE/UMECLIDIN/VILANTER 100-62.5-25 MCG/DOSE IH SCH (09:23)
--- NOTE | 2019-12-01 10:33 | Progress Note ---
Provider Note Provider Note: For discharge summary, please refer to dictated discharge summary of 11/16/2019, along with the attached addendum dated today, 12/01/2019.
[2019-12-01 13:34] VITALS: BP 157/72
== END 2019-12-01 13:00 | disposition home or self-care (01) | DRG 190 ==
LOC: ER 10:00 → EH 14:28 → INTOOBSV 14:28 → 4N 18:18 → OBSVTOIN 11-15 08:43 → 4N 11-18 14:35
PROVIDERS: ADMIT Internal Medicine; ATTEND Internal Medicine
DX: J44.1 Chronic obstructive pulmonary disease with (acute) exacerbation (principal); J96.21 Acute and chronic respiratory failure with hypoxia; I10 Essential (primary) hypertension; J20.9 Acute bronchitis, unspecified; J44.0 Chronic obstructive pulmonary disease with (acute) lower respiratory infection; F10.10 Alcohol abuse, uncomplicated; Z59.0 Homelessness; Z87.891 Personal history of nicotine dependence; Z75.1 Person awaiting admission to adequate facility elsewhere
CPT/HCPCS: 36415; 71046; 72040; 80048; 80053; 80061; 82803; 83036; 83735; 84439; 84443; 84481; 85025; 87040; 93005; 93010; 94640; 94761; 99291; 99292; G0378; J1100; J1650; J1956; J2920; J3490; J7512; J7620

== ENCOUNTER → 2019-12-10 | Outpatient (CLI) | payer MEDICARE, MEDICAID ==
--- NOTE | 2019-12-10 12:59 | RADIOLOGY REPORT (SQ) ---
EXAM DESCRIPTION: CHEST PA/LATERAL COMPLETED DATE/TIME: 12/10/2019 12:48 pm REASON FOR STUDY: COUGH COMPARISON: 11/13/2019 EXAM PARAMETERS: NUMBER OF VIEWS: two views TECHNIQUE: Digital Frontal and Lateral radiographic views of the chest acquired. RADIATION DOSE: NA LIMITATIONS: none FINDINGS: LUNGS AND PLEURA: Persistent ill-defined left basilar opacities, minimally increased ill-d efined right basilar interstitial opacities. No dense consolidation. No pleural effusion or pneumot horax. MEDIASTINUM AND HILAR STRUCTURES: No masses or contour abnormalities. HEART AND VASCULAR STRUCTURES: Normal heart size. Aortic atherosclerosis. BONES: No acute findings. HARDWARE: None in the chest. OTHER: No other significant finding. IMPRESSION: Mild bibasilar interstitial opacities, possibly atelectasis or infection. No significan t effusion. No dense consolidation. TECHNICAL DOCUMENTATION: JOB ID: [id number] 2010 [employer]- All Rights Reserved Reading location - IP/workstation name: [email or web address]
== END ==
LOC: OD 12:36
PROVIDERS: ATTEND Nurse Practitioner Family
DX: R05 Cough (principal)
CPT/HCPCS: 71046